=== PATIENT | male | born 1945 | race Caucasian/White ===

== ENCOUNTER 2016-11-20 06:50 | Day surgery (SDC) | payer MEDICARE, OTHER ==
[2016-11-16 09:41] VITALS: BMI 35.9
[~2016-11-20 06:50] MED LIST: LACTATED RINGERS 1,000 ML IV SCH
[2016-11-20 07:17] VITALS: TEMP 97
[2016-11-20 07:21] LABS: Glucose,Whole Blood 118 mg/dL (75-99)
[2016-11-20] MEDS ORDERED: PROPOFOL 10 MG/ML 20 ML VIAL IV ONE (08:25)
--- NOTE | 2016-11-20 09:06 | P.PCN ---
Date of Procedure: 11/20/16 Procedure(s) Performed: Procedure: 1. Esophagogastroduodenoscopy and biopsy. 2. Total colonoscopy. Preoperative diagnosis: Chronic reflux symptoms and rectal bleeding. Postoperative diagnosis: 1. Small sliding hiatal hernia with no definite esophagitis or complicated reflux disease. 2. Mild antral gastritis. 3. Diverticulosis of the colon with no evidence of acute diverticulitis or strictures. 4. Low-grade internal hemorrhoids without bleeding at the time of this exam. Preparation: HalfLytely prep. Sedation: Was provided by anesthesia. Brief clinical history: The patient is a 71-year-old male who I have evaluated in the office earlier this month regarding blood in his stools as well as chronic reflux symptoms. The patient had upper endoscopy and colonoscopy back in 2008. He reported having rectal bleeding for one week last month. There was some issues with occasional constipation or diarrhea but, otherwise, no significant bowel problems. No dysphagia or other alarm symptoms. Procedure: With the patient on his left lateral decubitus position and after informed consent and adequate sedation, I passed the Olympus-GIF 160 video upper endoscope through the cricopharyngeus down the esophagus. GE junction was around 40 cm from the incisors and there was a small sliding hiatal hernia. The GE is junction was irregular but I did not see any suggestion of Bains' s esophagus. There were no erosions, ulcers or strictures. The endoscope was then passed into the stomach which was insufflated with air and inspected in detail including the retroflex view in the cardia. There was some mottling and erythema in the antrum but no ulcers or erosions. Pyloric channel, duodenal bulb, post bulbar area and descending duodenum appeared within normal limits. I obtained multiple biopsies from the duodenum, antrum and esophagus then the endoscope was withdrawn and I proceeded with the colonoscopy. Perianal area did not show any fissures or fistulas. There were no masses felt on digital rectal examination. The Olympus CFQ 160L video colonoscope was then inserted in the rectum in the usual fashion and advanced to the cecum. There were multiple diverticular orifices seen scattered along the length of the bowel including the right side and around the hepatic flexure with no evidence of acute diverticulitis or strictures. No significant polyps or tumors were seen. The mucosa appeared healthy. There was no evidence of bleeding. I retroflexed endoscope in the rectum before the endoscope was withdrawn. Low- grade internal hemorrhoids were noted but there was no evidence of bleeding. The patient tolerated the procedure well. Plan: The patient was reassured. Will await biopsy results. Discussed dietary measures and local care for hemorrhoids. Further plans will be made based on his course. I will keep you updated on his progress.
[2016-11-20 09:24] LABS: Glucose,Whole Blood 124 mg/dL (75-99)
[2016-11-20 09:29] VITALS: BP 144/68; PULSE 59; RESP 20
== END 2016-11-20 09:59 | disposition home or self-care (01) ==
LOC: ORWHC2ENDO 06:50
DX: K29.70 Gastritis, unspecified, without bleeding (principal); K21.0 Gastro-esophageal reflux disease with esophagitis; K44.9 Diaphragmatic hernia without obstruction or gangrene; K57.30 Diverticulosis of large intestine without perforation or abscess without bleeding; K64.8 Other hemorrhoids; I10 Essential (primary) hypertension; J44.9 Chronic obstructive pulmonary disease, unspecified; G47.33 Obstructive sleep apnea (adult) (pediatric); Z99.89 Dependence on other enabling machines and devices; E11.9 Type 2 diabetes mellitus without complications; Z79.84 Long term (current) use of oral hypoglycemic drugs; N28.9 Disorder of kidney and ureter, unspecified; Z79.51 Long term (current) use of inhaled steroids; Z79.899 Other long term (current) drug therapy; Z88.0 Allergy status to penicillin; Z91.040 Latex allergy status
CPT/HCPCS: 88305; 88342; 45378; 43239; J2704; 99153

== ENCOUNTER 2016-12-07 14:19 | Inpatient (IN) | payer MEDICARE, OTHER ==
[2016-12-07] MEDS ORDERED: MORPHINE SULFATE 10 MG/ML SYRINGE IM STA (15:39)
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
--- NOTE | 2016-12-07 16:00 | XR ---
EXAMINATION TYPE: XR ribs LT w pa chest xray DATE OF EXAM: 12/07/2016 3:54 PM CLINICAL HISTORY: Chest and left lower rib pain. TECHNIQUE: Single frontal view of the chest is obtained. A frontal and oblique images of the left-katherine ed ribs are acquired. COMPARISON: Prior chest x-ray November 08, 2015. FINDINGS: There is persistent linear scarring and/or atelectasis in both lung bases. No large pleura l effusion or pneumothorax is seen bilaterally. The cardiac silhouette size is mildly enlarged with a therosclerotic thoracic aorta. The osseous structures are somewhat demineralized. Dedicated images of the left-sided ribs show no acute displaced fractures. There is old healed fractu re of the left anterolateral sixth rib redemonstrated. IMPRESSION: 1. Persistent bibasilar linear scarring and/or atelectasis. No new suspicious acute infiltrate is see n. 2. Old left anterolateral sixth rib fracture. No acute displaced left-sided rib fractures are clearly seen.
[2016-12-07 17:07] LABS: Magnesium 1.8 mg/dL (1.6-2.3); Potassium 4.8 mmol/L (3.5-5.1); Total Bilirubin 0.7 mg/dL (0.2-1.3); Total Protein 7.4 g/dL (6.3-8.2)
[2016-12-07 17:11] LABS: Basophils % (A) 0 %; CH 33.9; CHCM 34.6; Eosinophils # (A) 0.3 k/uL (0-0.7); Eosinophils % (A) 6 %; HCT 39.5 % (39.0-53.0); HDW 2.82; HGB 13.1 gm/dL (13.0-17.5); INR 1.1 (<1.1); Luc # (Auto) 0.07; Luc % (Auto) 1; Lymphocytes # (A) 0.8 k/uL (1.0-4.8); Lymphocytes % (A) 14 %; MCH 32.7 pg (25.0-35.0); MCHC 33.2 g/dL (31.0-37.0); MCV 98.5 fL (80.0-100.0); Mean Platelet Volume 8.2; Monocytes # (A) 0.2 k/uL (0-1.0); Monocytes % (A) 4 %; Neutrophils # (A) 4.1 k/uL (1.3-7.7); Neutrophils % (A) 74 %; Partial Thromboplastin Time 25.1 sec (22.0-30.0); Prothrombin Time 10.8 sec (9.0-12.0); RBC 4.01 m/uL (4.30-5.90); RDW 13.5 % (11.5-15.5); WBC 5.5 k/uL (3.8-10.6); WBC (Perox) 5.56
[2016-12-07 17:19] LABS: Creatine Kinase 36 U/L (55-170)
[2016-12-07 17:31] LABS: Creatine Kinase MB 0.7 ng/mL (0.0-2.4); Troponin I <0.012 ng/mL (0.000-0.034)
[2016-12-07] MEDS ORDERED: HYDROmorphone 1 MG/ML 1 ML SYRINGE IVP STA (18:09)
--- NOTE | 2016-12-07 19:21 | CT ---
EXAMINATION TYPE: CT chest wo con DATE OF EXAM: 12/07/2016 6:53 PM COMPARISON: NONE HISTORY: Pt states of left side chest pain. No known injury CT DLP: 847 mGycm. Automated Exposure Control for Dose Reduction was Utilized. TECHNIQUE: CT scan of the thorax is performed without IV contrast. FINDINGS: LUNGS: The lungs are grossly clear, there is no concerning parenchymal mass or nodule identified. Bi basilar subsegmental atelectasis is seen. There is no pleural effusion or pneumothorax seen. Nonobstr uctive circular 8mm lesion is seen within the distal aspect of the right mainstem bronchus that appea rs to contain internal air and may represent inspissated debris/mucus versus mass. MEDIASTINUM: Lack of IV contrast is noted to limit evaluation for mediastinal and especially hilar ad enopathy. Incidental note is made of a bovine aortic arch. There are no definitive greater than 1 cm hilar or mediastinal lymph nodes. No cardiomegaly or pericardial effusion is seen. OTHER: There is diffuse hypoattenuation of the entirety of the hepatic parenchyma compatible with und erlying hepatic steatosis. Multiple enlarged bilateral axillary lymph nodes maintain fatty nba, and are likely reactive. IMPRESSION: 1. No CT findings to support the patient's history of left-sided chest pain. 2. 8 mm nonobstructing lesion within the distal aspect of the right mainstem bronchus that appears to contain internal air and may represent inspissated debris/mucus versus mass. Follow-up short-term ex am or bronchoscopy are recommended for further evaluation. 3. Hepatic steatosis. 4. Multiple bilateral axillary lymph nodes that are enlarged but maintain fatty nba, likely reactive .
[2016-12-07] MEDS ORDERED: METHOCARBAMOL 750 MG TAB PO STA (19:56)
[2016-12-07] MEDS ORDERED: LIDOCAINE 5% PATCH TOPICAL STA (19:57)
[2016-12-07] MEDS ORDERED: NALOXONE 0.4 MG/ML 1 ML VIAL IV PRN (20:54)
[2016-12-07] MEDS ORDERED: ACETAMINOPHEN TAB 325 MG TAB PO PRN (20:54)
[2016-12-07 22:02] VITALS: BMI 36.1
[2016-12-07] MEDS: metFORMIN 500 MG TAB PO SCH (22:09)
[2016-12-07] MEDS: PROPRANOLOL LA 80 MG CAP.SA.24H PO SCH (22:09)
[2016-12-07] MEDS: ALLOPURINOL 100 MG TAB PO SCH (22:09)
[2016-12-07] MEDS: MORPHINE SULFATE 4 MG/ML SYRINGE IV PRN (22:11)
[2016-12-08] MEDS: MORPHINE SULFATE 4 MG/ML SYRINGE IV PRN ×2 (01:51→06:03)
[2016-12-08] MEDS: SYMBICORT 80-4.5 MCG INHALER INHALATION SCH ×3 (06:03→19:52)
[2016-12-08] MEDS ORDERED: PANTOPRAZOLE 40 MG TABLET PO SCH (07:30)
[2016-12-08 07:58] LABS: Glucose,Whole Blood 149 mg/dL (75-99)
[2016-12-08] MEDS: HYDROcodone/APAP 5-325MG 1 EACH TAB PO PRN ×2 (08:21→19:49)
[2016-12-08] MEDS: LINAGLIPTIN 5 MG TABLET PO SCH (08:25)
[2016-12-08] MEDS: metFORMIN 500 MG TAB PO SCH (08:25)
[2016-12-08] MEDS: PROPRANOLOL LA 80 MG CAP.SA.24H PO SCH ×2 (08:25→19:50)
[2016-12-08] MEDS: ALLOPURINOL 100 MG TAB PO SCH ×2 (08:25→19:50)
[2016-12-08] MEDS: FENOFIBRATE 160 MG TAB PO SCH (08:25)
[2016-12-08] MEDS: amLODIPine 5 MG TAB PO SCH (08:25)
[2016-12-08] MEDS: GABAPENTIN 300 MG CAP PO SCH (08:27)
[2016-12-08] MEDS ORDERED: FUROSEMIDE 40 MG TAB PO SCH (09:00)
[2016-12-08] MEDS ORDERED: GLIMEPIRIDE 1 MG TAB PO SCH (09:00)
[2016-12-08] MEDS ORDERED: LISINOPRIL 5 MG TAB PO SCH (09:00)
[2016-12-08 12:02] LABS: Glucose,Whole Blood 138 mg/dL (75-99)
[2016-12-08] MEDS: SODIUM CHLORIDE 0.9% 1,000 ML IV SCH ×2 (15:09→17:21)
[2016-12-08] MEDS: IPRATROPIUM-ALBUTEROL 3 ML NEB INHALATION SCH ×2 (16:08→19:52)
[2016-12-08 16:11] LABS: Hemoglobin A1C 6.4 % (4.2-6.1)
[2016-12-08 17:06] LABS: Glucose,Whole Blood 148 mg/dL (75-99)
[2016-12-08] MEDS: INSULIN LISPRO (humaLOG) 300 UNIT/3 ML VIAL SQ SCH ×2 (17:53→19:58)
[2016-12-08 17:57] LABS: Amylase 59 U/L (30-110)
--- NOTE | 2016-12-08 19:34 | CT ---
EXAMINATION TYPE: CT abdomen pelvis wo con DATE OF EXAM: 12/08/2016 6:51 PM COMPARISON: 10/22/2014 HISTORY: Left sided rib and abdominal pain. CT DLP: 1130.30 mGycm Automated exposure control for dose reduction was used. TECHNIQUE: Helical acquisition of images was performed from the lung bases through the pelvis. FINDINGS: There is some atelectasis at both posterior lung bases. There is no pleural effusion. Liver shows no focal defect. Gallbladder appears normal. Bile ducts are not dilated. Spleen appears n ormal. There is no pancreatic mass. There is no ascites. There is no adrenal mass. There is a 1 cm cortical cyst on the anterior right kidney. There is no hyd ronephrosis. There is no retroperitoneal adenopathy. I see no intestinal wall thickening. There are n o dilated loops. Appendix appears normal. There is no sign of appendicitis. Bony structures are intac t. IMPRESSION: THERE IS NEW ATELECTASIS AT THE POSTERIOR LUNG BASES COMPARED TO OLD EXAM. NORMAL APPENDIX. STABLE RI GHT SMALL RENAL CORTICAL CYST. THERE IS CLEARING OF THE MINIMAL LEFT-SIDED HYDRONEPHROSIS COMPARED TO OLD EXAM.
[2016-12-08] MEDS: FAMOTIDINE 20 MG TAB PO SCH (19:50)
--- NOTE | 2016-12-08 19:50 | HP ---
DATE OF ADMISSION: 12/07/2016 This patient is a 71-year-old who came in with complaints of left-sided abdominal pain ( ) nonspecific sharp in nature, non-radiating, that started after sneezing apparently, and patient believes he pulled his muscle, and he complains that he has severe pain, although on exam patient does not have any hernias. I am not sure of the etiology of abdominal pain after sneezing, because of which I am obtaining a CT of the abdomen without contrast, as his kidney function is worse. Patient is admitted to rule out acute coronary artery syndromes, although patient denied any chest pain, and one set of troponins was negative. Patient denied any nausea, vomiting. His pain gets worse on and off. It appears to be like a squeezing and a sharp pain. I will also obtain amylase and lipase levels on him. The main reason I am keeping him here is because of his poor renal function. Patient's baseline creatinine is 1.2. Patient's creatinine now is around 2. Patient is on Lasix. He does not exactly know why he is on Lasix. Patient is on other nephrotoxic agents. Those will be discontinued and we will watch the patient here. Patient will be started on IV fluids and repeat kidney function tomorrow. REVIEW OF SYSTEMS: CONSTITUTIONAL: No fever, no malaise, no fatigue. HEENT: No recent visual problems or hearing problems. Denied any sore throat. CARDIOVASCULAR: No chest pain, orthopnea, PND, no palpitations, no syncope. PULMONARY: No shortness of breath, no cough, no hemoptysis. GASTROINTESTINAL: As described in HPI. Patient denied any diarrhea, hematochezia. NEUROLOGICAL: No headaches, no weakness, no numbness. HEMATOLOGICAL: Denies any bleeding or petechiae. GENITOURINARY: Denies any burning micturition, frequency, or urgency. MUSCULOSKELETAL/RHEUMATOLOGICAL: Denies any joint pain, swelling, or any muscle pain. ENDOCRINE: Denies any polyuria or polydipsia. The rest of the 14 point review of systems is negative. Home medications include: 1. Allopurinol. 2. Budesonide /formoterol. 3. Enalapril. 4. Lasix. 5. Glimepiride. 6. Linagliptin. 7. Meclizine. 8. Pantoprazole. 9. Propranolol. 10. Amlodipine. 11. Metformin. 12. Fenofibrate. 13. Gabapentin. 14. Ergocalciferol. ALLERGIES: 1. INFLUENZA VIRUS. 2. LATEX. 3. PENICILLINS. Past medical history is significant for: 1. COPD. 2. Diabetes mellitus, type 2. 3. Gastroesophageal reflux disease. 4. Hyperlipidemia. 5. Hypertension. 6. Osteoarthritis. 7. Prostate disorder. 8. Sleep apnea. 9. Adenoidectomy. 10. Ear surgery. 11. Hernia repair. 12. Orthopedic surgery. 13. Prostate surgery. She never had any CHF history in the past. SOCIAL HISTORY: Former smoker. Quit smoking in . Denied any alcohol abuse or any drug abuse. FAMILY HISTORY: Denied any significant family history in mother or father. PHYSICAL EXAMINATION: VITAL SIGNS: Temperature 98.3, pulse of 68, respiratory rate of 16. Blood pressure is 139/65. Saturating at 94% on 2 L of oxygen by nasal cannula. GENERAL: Morbidly obese. Alert and oriented x3. HEENT: Pupils are round and equally reacting to light. EOMI. No scleral icterus. No conjunctival pallor. Normocephalic, atraumatic. No pharyngeal erythema. No thyromegaly. CARDIOVASCULAR: S1 and S2 present. No murmurs, rubs, or gallops. PULMONARY: Minimal expiratory wheezing was appreciated on exam. ABDOMEN: Distended with fat mostly. MUSCULOSKELETAL: No joint swelling or deformity. EXTREMITIES: No cyanosis, clubbing, or pedal edema. NEUROLOGICAL: Gross neurological examination did not reveal any focal deficits. SKIN: No rashes. LABORATORY DATA: CBC, CMP are abnormal for elevated BUN of 36, creatinine of 2.03. ASSESSMENT AND PLAN: 1. Acute renal failure, probably prerenal azotemia from excessive diuresis. Patient will be started on IV fluids. Diuretics will be held at this point of time. Lisinopril will be held. Along with that, we will also hold MAIN inhibitor and Glimepiride. Patient will be started on sliding scale insulin for blood sugars. 2. Left-sided abdominal pain. Patient has nonspecific abdominal pain; unsure of the etiology. I will obtain a CT of the abdomen without contrast, as mentioned above. Patient does not have any chest pain at this point of time. No hernias. 3. Morbid obesity. Dietary counseling was provided. 4. Benign prostatic hypertrophy. 5. Hyperlipidemia. 6. Hypertension. 7. Diabetes mellitus, type 2. 8. Chronic obstructive pulmonary disease with minimal exacerbation. I do not believe patient will need systemic steroids. Inhalational treatments and Symbicort will be continued. Patient has a negative D-dimer. For above-mentioned chronic medical problems, I will continue his home medications with some modifications, as I mentioned in the HPI. Protonix will be held. Patient will be started on Pepcid because of poor renal function. Patient's primary care physician is Dr. Monisha Parham.
[2016-12-08 19:55] LABS: Glucose,Whole Blood 141 mg/dL (75-99)
[2016-12-08] MEDS ORDERED: BENZOCAINE/MENTHOL LOZENG 1 EACH LOZENGE MUCOUS MEM PRN (21:28)
[2016-12-09] MEDS: HYDROcodone/APAP 5-325MG 1 EACH TAB PO PRN ×3 (04:17→18:20)
[2016-12-09 05:42] LABS: CH 34.1; CHCM 33.9; HCT 33.7 % (39.0-53.0); HDW 2.69; HGB 11.3 gm/dL (13.0-17.5); MCH 33.8 pg (25.0-35.0); MCHC 33.4 g/dL (31.0-37.0); Macrocytosis Slight; Mean Platelet Volume 9.2; RBC 3.34 m/uL (4.30-5.90); RDW 13.5 % (11.5-15.5); WBC 5.8 k/uL (3.8-10.6)
[2016-12-09 05:56] LABS: Calcium 8.9 mg/dL (8.4-10.2); Potassium 5.2 mmol/L (3.5-5.1)
[2016-12-09 06:51] LABS: Glucose,Whole Blood 121 mg/dL (75-99)
[2016-12-09] MEDS: IPRATROPIUM-ALBUTEROL 3 ML NEB INHALATION SCH ×4 (07:53→19:47)
[2016-12-09] MEDS: SYMBICORT 80-4.5 MCG INHALER INHALATION SCH ×2 (07:55→19:47)
[2016-12-09] MEDS: INSULIN LISPRO (humaLOG) 300 UNIT/3 ML VIAL SQ SCH ×3 (08:05→17:28)
[2016-12-09] MEDS: GABAPENTIN 300 MG CAP PO SCH (08:14)
[2016-12-09] MEDS: ALLOPURINOL 100 MG TAB PO SCH ×2 (08:14→21:55)
[2016-12-09] MEDS: FAMOTIDINE 20 MG TAB PO SCH (08:14)
[2016-12-09] MEDS: PROPRANOLOL LA 80 MG CAP.SA.24H PO SCH ×2 (08:14→21:55)
[2016-12-09] MEDS: FENOFIBRATE 160 MG TAB PO SCH (08:14)
[2016-12-09] MEDS: amLODIPine 5 MG TAB PO SCH (08:14)
[2016-12-09] MEDS: LINAGLIPTIN 5 MG TABLET PO SCH (08:14)
[2016-12-09] MEDS: SODIUM CHLORIDE 0.9% 1,000 ML IV SCH ×3 (10:41→16:07)
[2016-12-09 11:53] LABS: Glucose,Whole Blood 204 mg/dL (75-99)
--- NOTE | 2016-12-09 15:09 | XR ---
EXAMINATION TYPE: XR chest 1V DATE OF EXAM: 12/09/2016 3:01 PM COMPARISON: Prior chest x-ray 07 December 2016, CT chest 07 December 2016 HISTORY: Congestive heart failure TECHNIQUE: Single frontal view of the chest is obtained. FINDINGS: There is some improvement in aeration at the lung bases. Patient is again rotated. No evid ent pneumothorax. IMPRESSION: Improvement in aeration.
[2016-12-09] MEDS ORDERED: FUROSEMIDE 10 MG/ML 4 ML VIAL IV STA (15:36)
[2016-12-09 16:47] LABS: ABG HCO3 22 mmol/L (21-25); ABG PCO2 35 mmHg (35-45); ABG PO2 60 mmHg (83-108)
[2016-12-09 16:48] LABS: ABG Base Excess -2.4 mmol/L; ABG TCO2 23 mmol/L (19-24)
[2016-12-09 17:40] LABS: Glucose,Whole Blood 112 mg/dL (75-99)
--- NOTE | 2016-12-09 18:09 | PN ---
Patient is a 71-year-old came in with left-sided abdominal pain. CT of the abdomen is negative. The abdominal pain resolved, probably musculoskeletal in nature and patient is actually here because of kidney dysfunction, although his kidney dysfunction has worsened. CT of the abdomen did show some left-sided mild hydronephrosis, which is actually improving. I am obtaining ultrasound of the kidney and obtaining urine, random sodium and urine random creatinine. Patient does have chronic kidney disease. Give a dose of Lasix and stop the IV fluids. Patient does carry the diagnosis of congestive heart failure, although not clearly evident on chest x-ray. Holding off all the nephrotoxic medications at this point of time. Patient's oxygen requirements have gone up to 4 liters. The patient was not wearing oxygen, although may have some sleep apnea, which is undiagnosed. I will obtain an echocardiogram as well. REVIEW OF SYSTEMS: CARDIOVASCULAR: No chest pain, no orthopnea, no PND, no palpitations. PULMONARY: Denied any shortness of breath. No cough or hemoptysis. GASTROINTESTINAL: No diarrhea, nausea or vomiting. No abdominal pain. Normoactive bowel sounds. NEUROLOGIC: No headaches, no weakness, no numbness. Medications were reviewed. PHYSICAL EXAMINATION: VITAL SIGNS: Temperature 97.7, pulse of 84, respiratory rate of 20, blood pressure is 106/58, saturating at 93% on 4-L of O2 nasal cannula. GENERAL: Alert and oriented x3, morbidly obese. HEENT: Pupils are round and equally reacting to light. EOMI. No scleral icterus. No conjunctival pallor. Normocephalic, atraumatic. No pharyngeal erythema. No thyromegaly. CARDIOVASCULAR: S1 and S2 present. No murmurs, rubs, or gallops. PULMONARY: Chest is clear to auscultation, no wheezing or crackles. ABDOMEN: Soft, nontender, nondistended, normoactive bowel sounds. No palpable organomegaly. MUSCULOSKELETAL: No joint swelling or deformity. EXTREMITIES: Patient does have 1+ nonpitting pedal edema in bilateral lower extremities. NEUROLOGICAL: Gross neurological examination did not reveal any focal deficits. SKIN: No rashes. LABORATORY DATA: CBC and CMP are abnormal for elevated potassium of 5.2. BUN is 64, creatinine of 4.31. BUN yesterday was 36 and creatinine was 2.03. ASSESSMENT AND PLAN: 1. Significant acute renal failure initially thought to be secondary to prerenal azotemia and intravascular volume depletion. Can be from congestive heart failure too. Will give a dose of Lasix and see how he does. I will stop the IV fluids. Avoid all the nephrotoxic agents. Consult Nephrology. Patient will be transferred to regular floor. 2. Morbid obesity. 3. benign prostatic hypertrophy. 4. Hyperlipidemia. 5. Hypertension. 6. Type 2 diabetes mellitus. 7. Acute hypoxic respiratory failure, may be related to congestive heart failure. Obtain echocardiogram, can be from pulmonary hypertension too. 8. Obstructive sleep apnea with minimal exacerbation for which we are using inhalational treatments and Symbicort, although his wheezing improved today. 9. Hyperkalemia due to worsening renal function.
[2016-12-09] MEDS: LORazepam 2 MG/ML SYRINGE IV PRN (20:20)
[2016-12-09 20:46] LABS: Glucose,Whole Blood 235 mg/dL (75-99)
--- NOTE | 2016-12-09 21:36 | US ---
EXAMINATION TYPE: US kidneys/renal and bladder DATE OF EXAM: 12/09/2016 5:44 PM COMPARISON: 05/29/2014 CLINICAL HISTORY: renal failure. no symptoms per patient, EXAM MEASUREMENTS: Right Kidney: 11.2 x 5.1 x 5.5 cm Left Kidney: 9.1 x 4.1 x 5.5 cm TECHNOLOGIST IMPRESSION: large body habitus Right Kidney: 1.9cm hyperechoic lesion seen on superior pole, noted on previous US also Left Kidney: wnl Bladder: wnl Bilateral Jets seen: no Echogenic focus of the upper pole of the right kidney compatible with angiomyolipoma again noted. No hydronephrosis bilaterally. Coarse echotexture noted within the liver. IMPRESSION: Ureteral jets are not evident. 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 Probable fatty infiltrat ion of the liver.
[2016-12-09 21:59] LABS: Glucose,Whole Blood 177 mg/dL (75-99)
[2016-12-10 00:21] LABS: Glucose,Whole Blood 144 mg/dL (75-99)
[2016-12-10] MEDS: SODIUM CHLORIDE 0.9% 1,000 ML IV SCH ×3 (00:33→10:53)
[2016-12-10] MEDS: INSULIN LISPRO (humaLOG) 300 UNIT/3 ML VIAL SQ SCH ×5 (00:34→22:24)
[2016-12-10 07:13] LABS: Glucose,Whole Blood 153 mg/dL (75-99)
[2016-12-10] MEDS: PROPRANOLOL LA 80 MG CAP.SA.24H PO SCH ×2 (08:19→22:38)
[2016-12-10] MEDS: LINAGLIPTIN 5 MG TABLET PO SCH (08:20)
[2016-12-10] MEDS: FAMOTIDINE 20 MG TAB PO SCH (08:20)
[2016-12-10] MEDS: GABAPENTIN 300 MG CAP PO SCH (08:20)
[2016-12-10] MEDS: ALLOPURINOL 100 MG TAB PO SCH ×2 (08:20→22:24)
[2016-12-10] MEDS: FENOFIBRATE 160 MG TAB PO SCH (08:21)
[2016-12-10] MEDS: HYDROcodone/APAP 5-325MG 1 EACH TAB PO PRN (08:25)
[2016-12-10] MEDS: SYMBICORT 80-4.5 MCG INHALER INHALATION SCH ×2 (09:05→20:26)
[2016-12-10] MEDS: IPRATROPIUM-ALBUTEROL 3 ML NEB INHALATION SCH ×4 (09:05→20:25)
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
[2016-12-10 09:58] LABS: CH 33.3; CHCM 33.3; HCT 33.4 % (39.0-53.0); HDW 2.57; HGB 11.1 gm/dL (13.0-17.5); MCH 33.5 pg (25.0-35.0); MCHC 33.3 g/dL (31.0-37.0); MCV 100.5 fL (80.0-100.0); Mean Platelet Volume 7.7; RBC 3.32 m/uL (4.30-5.90); RDW 13.4 % (11.5-15.5); WBC 5.2 k/uL (3.8-10.6)
[2016-12-10 10:09] LABS: Potassium 4.6 mmol/L (3.5-5.1); Total Protein 6.2 g/dL (6.3-8.2)
[2016-12-10 10:33] LABS: Appearance,Urine Clear (Clear); Bacteria,Urine Rare /hpf; Bilirubin,Urine Negative (Negative); Glucose,Urine (UA) Negative (Negative); Ketones,Urine Negative (Negative); Leukocyte Esterase,Urine Negative (Negative); Nitrite,Urine Negative (Negative); Particle Count 1087; Protein,Urine 1+ (Negative); RBC,Urine <1 /hpf (0-5); Specific Gravity,Urine 1.014 (1.001-1.035); Squamous Epithelial Cell,Urine <1 /hpf (0-4); UA Billing (MACRO vs. MICRO) MICRO
[2016-12-10 11:42] LABS: Glucose,Whole Blood 138 mg/dL (75-99)
[2016-12-10 17:16] LABS: Glucose,Whole Blood 153 mg/dL (75-99)
--- NOTE | 2016-12-10 17:51 | XR ---
EXAMINATION TYPE: XR chest 1V portable DATE OF EXAM: 12/10/2016 5:32 PM CLINICAL HISTORY: Difficulty breathing progress study. Rule out infection. TECHNIQUE: Single AP portable upright view of the chest is obtained. COMPARISON: Chest x-ray from one day earlier FINDINGS: Diminished inspiration on current study is present. Heart size is enlarged. No suspicious new focal airspace opacity, pleural effusion, or pneumothorax is seen on current study. There is pers istent patchy left basilar atelectasis. Degenerative change left glenohumeral joint is noted. IMPRESSION: Diminished inspiration with redemonstration of cardiomegaly but no new suspicious focal i nfiltrate clearly seen.
--- NOTE | 2016-12-10 17:53 | CT ---
EXAMINATION TYPE: CT brain wo con DATE OF EXAM: 12/10/2016 5:28 PM HISTORY: Confusion CT DLP: 1017.8 mGycm. Automated Exposure Control for Dose Reduction was Utilized. TECHNIQUE: CT scan of the head is performed without contrast. COMPARISON: CT brain March 30, 2010. FINDINGS: There is no acute intracranial hemorrhage or midline shift identified. There is diffuse v entricular and sulcal prominence consistent with diffuse age-related cerebral atrophy. There is low- attenuation in the periventricular white matter consistent with chronic small vessel ischemic change. Left basal ganglia calcification is redemonstrated. The globes are intact and the visualized sinuse s are clear. IMPRESSION: No acute intracranial hemorrhage or midline shift. There is mild diffuse age-related ce rebral atrophy and chronic small vessel ischemic change redemonstrated without significant interval c hange If Clinical concern for acute stroke persists further investigation with MRI study may be warranted.
[2016-12-10] MEDS: LORazepam 2 MG/ML SYRINGE IV PRN (19:13)
[2016-12-10] MEDS ORDERED: PIPERACILLIN-TAZOBACTAM 3.375 GM VIAL IVPB SCH (21:00)
[2016-12-10] MEDS ORDERED: PIPERACILLIN-TAZOBACTAM 3.375 GM in DEXTROSE/WATER 1 50ML.BAG IVPB SCH (21:00)
[2016-12-10 21:20] LABS: Glucose,Whole Blood 154 mg/dL (75-99)
[2016-12-10] MEDS: QUEtiapine 25 MG TAB PO PRN (22:38)
[2016-12-11] MEDS ORDERED: LORazepam 2 MG/ML SYRINGE IV PRN (00:14)
[2016-12-11 07:26] LABS: Glucose,Whole Blood 128 mg/dL (75-99)
[2016-12-11] MEDS: INSULIN LISPRO (humaLOG) 300 UNIT/3 ML VIAL SQ SCH ×4 (08:32→20:15)
[2016-12-11] MEDS: ALLOPURINOL 100 MG TAB PO SCH ×2 (08:32→20:16)
[2016-12-11] MEDS: PROPRANOLOL LA 80 MG CAP.SA.24H PO SCH ×2 (08:32→20:13)
[2016-12-11] MEDS: GABAPENTIN 300 MG CAP PO SCH (08:33)
[2016-12-11] MEDS: LINAGLIPTIN 5 MG TABLET PO SCH (08:33)
[2016-12-11] MEDS: FAMOTIDINE 20 MG TAB PO SCH (08:33)
[2016-12-11] MEDS: FENOFIBRATE 160 MG TAB PO SCH (08:33)
[2016-12-11] MEDS: SODIUM CHLORIDE 0.9% 1,000 ML IV SCH (08:44)
[2016-12-11] MEDS: SYMBICORT 80-4.5 MCG INHALER INHALATION SCH ×2 (09:20→20:24)
[2016-12-11] MEDS: IPRATROPIUM-ALBUTEROL 3 ML NEB INHALATION SCH ×4 (09:21→20:24)
--- NOTE | 2016-12-11 10:29 | P.PN ---
Subjective Patient is seen in follow-up for acute kidney injury. Patient has chronic kidney disease stage III with baseline creatinine near 1.4 as of March 2016. His creatinine this admission was 2 and increased to 4.3 as of yesterday. He was noted to have urinary retention and a Mckeon catheter was inserted. He is nonoliguric with urine output greater than 2 L in the last 24 hours. His appetite is good. Denies any vomiting or diarrhea. Denies active chest pain or shortness of breath. He did spike a temperature this admission however cultures remain negative. Urinalysis and renal ultrasound are noted to be quite benign. Vital signs are stable. General: The patient appeared well nourished and normally developed. HEENT: Head exam is unremarkable. Neck is without jugular venous distension. LUNGS: Lungs are clear to auscultation and percussion. Breath sounds decreased. HEART: Rate and Rhythm are regular. First and second heart sounds normal. No murmurs, rubs or gallops. ABDOMEN: Abdominal exam reveals normal bowel sounds. Non-tender and non- distended. No evidence of peritonitis. EXTREMITITES: No clubbing, cyanosis, or edema. Objective - Vital Signs Vital signs: Vital Signs Temp 97.7 F 12/11/16 07:00 Pulse 66 12/11/16 07:00 Resp 20 12/11/16 07:00 BP 109/59 12/11/16 07:00 Pulse Ox 94 L 12/11/16 07:00 Intake & Output 12/10/16 12/11/16 12/11/16 18:59 06:59 18:59 Intake Total 200 Output Total 800 1300 Balance -600 -1300 Intake: Oral 200 Output: Urine 800 1300 Other: # Bowel Movements 0 - Labs CBC & Chem 7: 12/10/16 09:20 12/10/16 09:20 Labs: Abnormal Lab Results - Last 24 Hours (Table) 12/10/16 12/10/16 12/10/16 Range/Units 10:00 11:21 16:56 POC Glucose (mg/dL) 138 H 153 H (75-99) mg/dL Urine Protein 1+ H (Negative) Urine Bacteria Rare H (None) /hpf 12/10/16 12/11/16 Range/Units 21:08 07:22 POC Glucose (mg/dL) 154 H 128 H (75-99) mg/dL Urine Protein (Negative) Urine Bacteria (None) /hpf Microbiology - Last 24 Hours (Table) 12/09/16 22:00 Blood Culture - Preliminary Blood No Growth after 24 hours 12/09/16 22:20 Blood Culture - Preliminary Blood No Growth after 24 hours 12/10/16 10:00 Urine Culture - Preliminary Urine,Voided Assessment and Plan Plan: Assessment: #1. Nonoliguric acute kidney injury secondary to ischemic ATN secondary to hemodynamic instability and urinary retention. Creatinine 4.3 as of yesterday. #2. Chronic kidney disease stage III with baseline creatinine near 1.4 as of March 2016. Etiology is diabetic kidney disease. No evidence of hydronephrosis noted on renal ultrasound. No hematuria. #3. Type 2 diabetes mellitus. #4. History of BPH. Plan: Continue normal saline to run at 50 mL an hour. Follow-up cultures. Avoid nephrotoxic agents and hypotensive episodes. Maintain Mckeon catheter. Start Flomax. Repeat electrolytes in the morning.
[2016-12-11 10:43] LABS: Calcium 8.9 mg/dL (8.4-10.2); Potassium 4.9 mmol/L (3.5-5.1)
--- NOTE | 2016-12-11 11:30 | PN ---
71-year-old is being treated for acute renal failure, probably secondary to acute tubular necrosis and the patient got confused last night secondary to toxic metabolic encephalopathy from uremia. I will obtain a CT of the head to rule out any intracranial issues. For agitation, we will use antipsychotics, ( ). Nephrology evaluated the patient and the patient has a low-grade fever last night. We will do the septic workup. Blood cultures, chest x-ray and UA was obtained which did not show any significant abnormality. REVIEW OF SYSTEMS: CARDIOVASCULAR: No chest pain, no orthopnea, no PND, no palpitations. PULMONARY: Denied any shortness of breath. No cough or hemoptysis. GASTROINTESTINAL: No diarrhea, nausea or vomiting. No abdominal pain. Normoactive bowel sounds. NEUROLOGIC: No headaches, no weakness, no numbness. Medications were reviewed. PHYSICAL EXAMINATION: VITAL SIGNS: Temperature 97.3, pulse of 84, respiratory rate of 20, blood pressure is 101/56, saturating at 92% on 5 liters of O2 by nasal cannula and I am repeating a chest x-ray. We will also obtain an ABG. GENERAL: The patient appears to be a bit lethargic, drowsy, but oriented x3, morbidly obese. HEENT: Pupils are round and equally reacting to light. EOMI. No scleral icterus. No conjunctival pallor. Normocephalic, atraumatic. No pharyngeal erythema. No thyromegaly. CARDIOVASCULAR: S1 and S2 present. No murmurs, rubs, or gallops. PULMONARY: Chest is clear to auscultation, no wheezing or crackles. ABDOMEN: Soft, nontender, nondistended, normoactive bowel sounds. No palpable organomegaly. MUSCULOSKELETAL: No joint swelling or deformity. EXTREMITIES: No cyanosis, clubbing, or pedal edema. NEUROLOGICAL: Gross neurological examination did not reveal any focal deficits. SKIN: No rashes. LABORATORY DATA: BUN continued to worsen, to 69 and 4.34. Patient does not have any leukocytosis and had a low-grade fever. ASSESSMENT AND PLAN: 1. Acute renal failure due to acute tubular necrosis. Continue to hold nephrotoxic agents. Continue with IV fluids at 50 mL/h as ordered by nephrology. 2. Morbid obesity. 3. Benign prostatic hypertrophy. 4. Hyperlipidemia. 5. Hypertension. 6. Type 2 diabetes mellitus. 7. Low grade fevers, rule out sepsis with above mentioned management. 8. Obstructive sleep apnea with minimal exacerbation. Continue with inhalational treatments and Symbicort. May need prednisone many prednisone. 9. Continue with empiric antibiotics for now. 10. We will obtain ABG to assess for his hypoxemia. Patient is requiring 5 liters at this point of time. 11. Acute respiratory failure not sure whether it is hypoxic or hypercapnic. We will obtain an ABG as mentioned above.
[2016-12-11] MEDS: TAMSULOSIN 0.4 MG CAP.ER.24H PO SCH (11:48)
--- NOTE | 2016-12-11 11:49 | ECHOF ---
Referral Reason:shortness of breath MEASUREMENTS -------- HEIGHT: 167.6 cm WEIGHT: 96.6 kg BP: 109/59 RVIDd: 3.1 cm (< 3.3) IVSd: 1.3 cm (0.6 - 1.1) LVIDd: 3.3 cm (3.9 - 5.3) LVPWd: 1.3 cm (0.6 - 1.1) IVSs: 2.0 cm LVIDs: 2.3 cm LVPWs: 2.0 cm LA Diam: 3.6 cm (2.7 - 3.8) LAESV Index (A-L): 20.14 ml/m Ao Diam: 3.3 cm (2.0 - 3.7) AV Cusp: 1.9 cm (1.5 - 2.6) LA Diam: 3.2 cm (2.7 - 3.8) MV EXCURSION: 15.249 mm (> 18.000) MV EF SLOPE: 67 mm/s (70 - 150) EPSS: 0.5 cm MV E Luiz: 0.95 m/s MV DecT: 186 ms MV A Luiz: 0.87 m/s MV E/A Ratio: 1.10 AV maxP.07 mmHg AV meanP.33 mmHg RAP: 5.00 mmHg RVSP: 36.03 mmHg FINDINGS -------- Sinus rhythm. This was a technically difficult study with suboptimal views. There is mild concentric left ventricular hypertrophy. Overall left ventricular systolic function is normal with, an EF between 55 - 60 %. The right ventricle is normal in size. Normal LA size by volume 22+/-6 ml/m2. The right atrium is normal in size. 1.5mg of Definity was utilized for enhancement of images Aortic valve is trileaflet and is mildly thickened. Peak/mean gradient across the Aortic Valve is 14.07mmHg / 7.33mmHg. Mild mitral annular calcification present. Mild tricuspid regurgitation present. There is mild pulmonary hypertension. The right ventricular systolic pressure, as measured by Doppler, is 36.03mmHg. The pulmonic valve was not well visualized. The aortic root size is normal. IVC Not well visulized. Echo free space may represent effusion or a pericardial fat pad. CONCLUSIONS -------- 1. Sinus rhythm. 2. Peak/mean gradient across the Aortic Valve is 14.07mmHg / 7.33mmHg. 3. Mild mitral annular calcification present. 4. Mild tricuspid regurgitation present. 5. There is mild pulmonary hypertension. 6. The right ventricular systolic pressure, as measured by Doppler, is 36.03mmHg. 7. The pulmonic valve was not well visualized. 8. The aortic root size is normal. 9. IVC Not well visulized. 10. Echo free space may represent effusion or a pericardial fat pad. 11. This was a technically difficult study with suboptimal views. 12. There is mild concentric left ventricular hypertrophy. 13. Overall left ventricular systolic function is normal with, an EF between 55 - 60 %. 14. The right ventricle is normal in size. 15. Normal LA size by volume 22+/-6 ml/m2. 16. The right atrium is normal in size. 17. 1.5mg of Definity was utilized for enhancement of images 18. Aortic valve is trileaflet and is mildly thickened. SUPERVISOR TYPE PHOTOGRAPHY: Jacques Abdullahi RDCS
[2016-12-11 11:54] LABS: Glucose,Whole Blood 189 mg/dL (75-99)
[2016-12-11 17:13] LABS: Glucose,Whole Blood 119 mg/dL (75-99)
[2016-12-11] MEDS: QUEtiapine 25 MG TAB PO PRN (20:16)
[2016-12-11 20:29] LABS: Glucose,Whole Blood 249 mg/dL (75-99)
[2016-12-12] MEDS: SODIUM CHLORIDE 0.9% 1,000 ML IV SCH (04:36)
[2016-12-12 07:26] LABS: Glucose,Whole Blood 138 mg/dL (75-99)
[2016-12-12] MEDS: SYMBICORT 80-4.5 MCG INHALER INHALATION SCH ×2 (07:44→19:37)
[2016-12-12] MEDS: IPRATROPIUM-ALBUTEROL 3 ML NEB INHALATION SCH ×4 (07:44→19:37)
[2016-12-12] MEDS: INSULIN LISPRO (humaLOG) 300 UNIT/3 ML VIAL SQ SCH ×4 (08:03→20:59)
[2016-12-12] MEDS: TAMSULOSIN 0.4 MG CAP.ER.24H PO SCH (08:05)
[2016-12-12] MEDS: FAMOTIDINE 20 MG TAB PO SCH (08:05)
[2016-12-12] MEDS: LINAGLIPTIN 5 MG TABLET PO SCH (08:05)
[2016-12-12] MEDS: FENOFIBRATE 160 MG TAB PO SCH (08:05)
[2016-12-12] MEDS: PROPRANOLOL LA 80 MG CAP.SA.24H PO SCH ×2 (08:05→20:59)
[2016-12-12] MEDS: ALLOPURINOL 100 MG TAB PO SCH ×2 (08:05→20:59)
[2016-12-12] MEDS: GABAPENTIN 300 MG CAP PO SCH (08:05)
--- NOTE | 2016-12-12 08:13 | CONS ---
DATE OF CONSULTATION: DATE OF SERVICE: 12/11/2016 REASON FOR CONSULTATION: Fever and antibiotic recommendation. HISTORY OF PRESENT ILLNESS: The patient is a 71-year-old male who presented to [facility] ER on 12/07/2016 with chief complaints of left-sided pain. The pain has been mostly in the left lower rib cage area. The patient gets some associated shortness of breath with it. The patient denies any significant cough or any sputum production. Patient denies having any nausea or any vomiting or any URI symptom. The patient did not have any fever on arrival to the ER. He has been evaluated by the ER physician. The patient did have x-rays which showed persistent bibasilar linear scarring or atelectasis. No new suspicious acute infiltrate is seen. Old left anterolateral sixth rib fracture. He did have a CT of the chest without contrast which shows an 8 mm nonobstructing lesion within the distal aspect of the right mainstem bronchus that appears to be contain internal air and may represent inspissated debris/ mucus versus mass. The patient also had a CT of abdomen and pelvis, which did show some atelectatic changes at the posterior lung base compared to the old exam. Normal appendix. Subsequently, the patient did spike a low-grade fever. The patient was started on Zosyn. Because of PENICILLIN allergy I was asked to see the patient for further recommendation regarding antibiotic therapy though the patient apparently did okay with Zosyn infusion. Patient at the time of my evaluation overall left sided chest pain has improved. His breathing is better. The patient had very mild cough, not bringing up any sputum. Patient denies any nausea, vomiting. No abdominal pain and no diarrhea. REVIEW OF SYSTEMS: CONSTITUTIONAL: Positive for weakness and low-grade fever. EYES: No complaint. ENT: No complaint. RESPIRATORY: As per HPI. CARDIOVASCULAR: No complaint. GENITOURINARY: No complaint. GASTROINTESTINAL: No complaint. MUSCULOSKELETAL: No complaint. INTEGUMENTARY: No complaint. PSYCHOLOGICAL: No complaint. ENDOCRINE: No complaint. NEUROLOGIC: No complaint. PAST MEDICAL HISTORY: Diabetes mellitus, COPD, gastroesophageal reflux disease, history of GI bleed, hypertension, hyperlipidemia, osteoarthritis, benign prostatic hypertrophy, renal insufficiency, sleep apnea. PAST SURGICAL HISTORY: Adenoidectomy, hernia repair, prostate surgery, tonsillectomy. ORIF of the right leg. SOCIAL HISTORY: The patient quit smoking back in 1969. She had about ( ) pack year smoking. Chews tobacco. No drug use. FAMILY HISTORY: No pertinent findings were noticed. Allergies to PENICILLIN with a rash, LATEX. However, he tolerated Zosyn without any problem. Medications currently include the patient is on Tylenol, [place], DuoNeb, Zyloprim, Cepacol lozenges, Symbicort, Rocephin, Pepcid, fenofibrate, Neurontin, Humalog, Ativan, morphine sulfate, Narcan, Inderal, Seroquel, Flomax. On examination, blood pressure is 109/59 with the pulse is 66, temperature is 97.7. He is 94% on 4 L nasal cannula. General description is an elderly male, lying in bed in no distress. No tachypnea or accessory muscle of respiration use. HEENT EXAMINATION: Slight pallor. No scleral icterus. Oral mucosal membranes dry. NECK: Trachea is central with no thyromegaly. LUNGS: Unlabored breathing with decreased breath sounds at the left base. No wheeze. HEART: S1, S2. Regular rate and rhythm. ABDOMEN: Soft, no tenderness. EXTREMITIES: No edema of the feet. SKIN EXAMINATION: No rashes. No mass palpable. There is no evidence of any rash on the left lower chest wall or the back area. NEUROLOGICAL: The patient is awake, alert, oriented x3. Mood and affect normal. LABS: Hemoglobin is 11.1, white count 5.2 with a BUN of 63, creatinine 3.30. Admission creatinine was 2.03. His urine is negative. Chest x-ray and CAT scan report as mentioned above. DIAGNOSTIC IMPRESSION AND PLAN: 1. Patient with a low-grade fever and did have left lower chest pain that is a possibility of possible costochondritis versus pneumonitis; however, the patient did have a CT of the chest that did not show any evidence of any pneumonia. Follow-up CT did show some atelectasis, underlying pneumonia though cannot be entirely excluded. The patient overall improvement on his Rocephin as the patient has no other clinical focus of infection. No abnormality was seen on CT of abdomen and pelvis. Urine has been negative. No evidence of cellulitis. 2. Patient noted to have PENICILLIN allergy, limits number of antibiotics that could be safely used. PLAN: 1. Patient to continue on Rocephin 1 gram IV daily. 2. Patient may benefit from a VQ scan in view of his left lower chest pain. A CT chest cannot be done because of renal function The other possibility of PE. 3. Will discuss with admitting. 4. Will follow up on his clinical condition and cultures to further adjust the medication if needed. Thank you for this consultation. Will follow this patient along with you. JACOB
--- NOTE | 2016-12-12 08:35 | PN ---
Patient is admitted for acute renal failure from possible acute tubular necrosis, improving creatinine. Patient had metabolic toxic encephalopathy, which is improving at this point of time. CT of the head is negative for any acute issue. Nephrology is evaluating the patient. Patient has a low-grade fever, source of infection is unknown. Chest x-ray, urine cultures are essentially negative and patient is on empiric antibiotic in the form of Zosyn. Depending on how he does, decision need to be made whether we need to continue antibiotics upon discharge or not. Although if needed to be continued, empiric antibiotic of Augmentin for a week with a total course of antibiotics for a week is reasonable. Patient although appears to be overall improving, echocardiogram showed normal ejection fraction. No significant pulmonary hypertension. Although IVC was not visualized well, because of which there is comment an IVC. There is mild pulmonary hypertension. REVIEW OF SYSTEMS: CARDIOVASCULAR: No chest pain, no orthopnea, no PND, no palpitations. PULMONARY: Denied any shortness of breath. No cough or hemoptysis. GASTROINTESTINAL: No diarrhea, nausea or vomiting. No abdominal pain. Normoactive bowel sounds. NEUROLOGIC: No headaches, no weakness, no numbness. Medications were reviewed. PHYSICAL EXAMINATION: Temperature 97.7, pulse of 82, respiratory rate of 20, blood pressure 109/59, saturating at 94% on 4 L of O2 by nasal cannula. GENERAL: Patient is drowsy, arousable, oriented x3, morbidly obese, not in apparent respiratory distress. HEENT: Pupils are round and equally reacting to light. EOMI. No scleral icterus. No conjunctival pallor. Normocephalic, atraumatic. No pharyngeal erythema. No thyromegaly. CARDIOVASCULAR: S1 and S2 present. No murmurs, rubs, or gallops. PULMONARY: Chest is clear to auscultation, no wheezing or crackles. ABDOMEN: Soft, nontender, nondistended, normoactive bowel sounds. No palpable organomegaly. MUSCULOSKELETAL: No joint swelling or deformity. EXTREMITIES: No cyanosis, clubbing, or pedal edema. NEUROLOGICAL: Gross neurological examination did not reveal any focal deficits. SKIN: No rashes. LABORATORY DATA: Basic metabolic profile is abnormal for elevated sodium of 146, chloride of 109, BUN of 63, creatinine of 3.3, BUN and creatinine are improved compared to yesterday. ASSESSMENT AND PLAN: 1. Acute renal failure due to acute tubular necrosis. Continue with IV fluids. 2. Fever and systemic inflammatory response syndrome without any clearcut source of infection. Continue with empiric antibiotics for now until we get the finalization of the blood cultures. 3. Morbid obesity. 4. Hypoxemia and hypoxic respiratory failure; unsure of the exact etiology. Patient does not have any clear-cut pneumonia. ABGs are consistent with hypoxemia. Beyond that, I do not have much of the information, although his hypoxemia improving. Patient may have a component of chronic obstructive pulmonary disease. Continue with systemic steroids and inhalational treatments. Morbid obesity and restrictive lung disease is probably contributing to his shortness of breath. His lungs are although clear to auscultation. 5. Hypertension. 6. Hyperlipidemia. 7. Benign prostatic hypertrophy. PLAN: Continue with present antibiotics. Continue with IV fluids. Discharge in a day or two depending on his kidney function and his overall progress in his clinical condition. PT and OT consult was obtained.
[2016-12-12 08:58] LABS: CH 33.1; CHCM 33.1; HCT 33.3 % (39.0-53.0); HDW 2.71; HGB 11.1 gm/dL (13.0-17.5); MCH 33.4 pg (25.0-35.0); MCHC 33.2 g/dL (31.0-37.0); MCV 100.4 fL (80.0-100.0); Mean Platelet Volume 7.9; RBC 3.32 m/uL (4.30-5.90); RDW 13.1 % (11.5-15.5); WBC 3.4 k/uL (3.8-10.6)
[2016-12-12 09:09] LABS: Calcium 8.9 mg/dL (8.4-10.2); Potassium 4.8 mmol/L (3.5-5.1)
--- NOTE | 2016-12-12 11:01 | P.PN ---
Subjective Patient is seen in follow-up for acute kidney injury. Patient has chronic kidney disease stage III with baseline creatinine near 1.4 as of March 2016. His creatinine this admission was 2 and peaked at 4.23 this admission. He was noted to have urinary retention and a Mckeon catheter was inserted. He is nonoliguric with urine output greater than 2 L in the last 24 hours. His appetite is good. Denies any vomiting or diarrhea. Denies active chest pain or shortness of breath. He did spike a temperature this admission however cultures remain negative. Urinalysis and renal ultrasound are noted to be quite benign. Vital signs are stable. General: The patient appeared well nourished and normally developed. HEENT: Head exam is unremarkable. Neck is without jugular venous distension. LUNGS: Lungs are clear to auscultation and percussion. Breath sounds decreased. HEART: Rate and Rhythm are regular. First and second heart sounds normal. No murmurs, rubs or gallops. ABDOMEN: Abdominal exam reveals normal bowel sounds. Non-tender and non- distended. No evidence of peritonitis. EXTREMITITES: No clubbing, cyanosis, or edema. Objective - Vital Signs Vital signs: Vital Signs Temp 97.3 F L 12/12/16 07:00 Pulse 72 12/12/16 07:58 Resp 20 12/12/16 07:00 BP 159/77 12/12/16 07:00 Pulse Ox 95 12/12/16 07:44 Intake & Output 12/11/16 12/12/16 12/12/16 18:59 06:59 18:59 Intake Total 1020 Output Total 1100 1100 Balance -1100 -80 Intake: Oral 1020 Output: Urine 1100 1100 Other: # Bowel Movements 1 - Labs CBC & Chem 7: 12/12/16 08:08 12/12/16 08:08 Labs: Abnormal Lab Results - Last 24 Hours (Table) 12/11/16 12/11/16 12/11/16 Range/Units 11:44 17:07 20:11 WBC (3.8-10.6) k/uL RBC (4.30-5.90) m/uL Hgb (13.0-17.5) gm/dL Hct (39.0-53.0) % MCV (80.0-100.0) fL Plt Count (150-450) k/uL Chloride (98-107) mmol/L Carbon Dioxide (22-30) mmol/L BUN (9-20) mg/dL Creatinine (0.66-1.25) mg/dL Glucose (74-99) mg/dL POC Glucose (mg/dL) 189 H 119 H 249 H (75-99) mg/dL 12/12/16 12/12/16 12/12/16 Range/Units 06:54 08:08 08:08 WBC 3.4 L (3.8-10.6) k/uL RBC 3.32 L (4.30-5.90) m/uL Hgb 11.1 L (13.0-17.5) gm/dL Hct 33.3 L (39.0-53.0) % MCV 100.4 H (80.0-100.0) fL Plt Count 124 L (150-450) k/uL Chloride 112 H (98-107) mmol/L Carbon Dioxide 21 L (22-30) mmol/L BUN 49 H (9-20) mg/dL Creatinine 2.40 H (0.66-1.25) mg/dL Glucose 130 H (74-99) mg/dL POC Glucose (mg/dL) 138 H (75-99) mg/dL Microbiology - Last 24 Hours (Table) 12/09/16 22:00 Blood Culture - Preliminary Blood No Growth after 48 hours 12/09/16 22:20 Blood Culture - Preliminary Blood No Growth after 48 hours 12/10/16 19:40 Blood Culture - Preliminary Blood No Growth after 24 hours 12/10/16 18:54 Blood Culture - Preliminary Blood No Growth after 24 hours 12/10/16 10:00 Urine Culture - Final Urine,Voided Assessment and Plan Plan: Assessment: #1. Nonoliguric acute kidney injury secondary to ischemic ATN secondary to hemodynamic instability and urinary retention. Creatinine peaked at 4.3 this admission and is down to 2.4 today. #2. Chronic kidney disease stage III with baseline creatinine near 1.4 as of March 2016. Etiology is diabetic kidney disease. No evidence of hydronephrosis noted on renal ultrasound. No hematuria. #3. Type 2 diabetes mellitus. #4. History of BPH. Plan: Hep-Lock IV fluids. Follow-up cultures. Avoid nephrotoxic agents and hypotensive episodes. Maintain Mckeon catheter. Continue Flomax. Repeat electrolytes in the morning.
[2016-12-12 12:07] LABS: Glucose,Whole Blood 175 mg/dL (75-99)
[2016-12-12] MEDS: HYDROcodone/APAP 5-325MG 1 EACH TAB PO PRN (15:22)
[2016-12-12 17:44] LABS: Glucose,Whole Blood 182 mg/dL (75-99)
[2016-12-12 20:42] LABS: Glucose,Whole Blood 191 mg/dL (75-99)
[2016-12-12] MEDS: QUEtiapine 25 MG TAB PO PRN (20:59)
[2016-12-13 07:08] LABS: Glucose,Whole Blood 138 mg/dL (75-99)
[2016-12-13] MEDS: GABAPENTIN 300 MG CAP PO SCH (07:44)
[2016-12-13] MEDS: INSULIN LISPRO (humaLOG) 300 UNIT/3 ML VIAL SQ SCH ×4 (07:45→20:57)
[2016-12-13] MEDS: FENOFIBRATE 160 MG TAB PO SCH (07:45)
[2016-12-13] MEDS: LINAGLIPTIN 5 MG TABLET PO SCH (07:45)
[2016-12-13] MEDS: ALLOPURINOL 100 MG TAB PO SCH ×2 (07:45→20:57)
[2016-12-13] MEDS: FAMOTIDINE 20 MG TAB PO SCH (07:45)
[2016-12-13] MEDS: PROPRANOLOL LA 80 MG CAP.SA.24H PO SCH (07:45)
[2016-12-13] MEDS: TAMSULOSIN 0.4 MG CAP.ER.24H PO SCH (07:45)
[2016-12-13] MEDS: IPRATROPIUM-ALBUTEROL 3 ML NEB INHALATION SCH ×4 (07:49→20:22)
[2016-12-13] MEDS: SYMBICORT 80-4.5 MCG INHALER INHALATION SCH ×2 (07:49→20:22)
[2016-12-13 07:56] LABS: Basophils % (A) 1 %; CH 33.2; CHCM 33.4; Eosinophils # (A) 0.2 k/uL (0-0.7); Eosinophils % (A) 5 %; HCT 32.9 % (39.0-53.0); HDW 2.76; HGB 11.2 gm/dL (13.0-17.5); Luc % (Auto) 2; Lymphocytes # (A) 0.4 k/uL (1.0-4.8); Lymphocytes % (A) 10 %; MCH 33.9 pg (25.0-35.0); MCHC 33.9 g/dL (31.0-37.0); MCV 99.9 fL (80.0-100.0); Mean Platelet Volume 8.7; Monocytes # (A) 0.2 k/uL (0-1.0); Monocytes % (A) 5 %; Neutrophils # (A) 3.4 k/uL (1.3-7.7); Neutrophils % (A) 77 %; RBC 3.29 m/uL (4.30-5.90); RDW 13.1 % (11.5-15.5); WBC 4.4 k/uL (3.8-10.6); WBC (Perox) 4.52
[2016-12-13 08:14] LABS: Calcium 9.2 mg/dL (8.4-10.2); Potassium 5.3 mmol/L (3.5-5.1)
[2016-12-13] MEDS: HYDROcodone/APAP 5-325MG 1 EACH TAB PO PRN ×2 (09:01→17:04)
--- NOTE | 2016-12-13 10:02 | PN ---
DATE OF SERVICE: 12/12/2016 INTERVAL HISTORY: Mr. Rolle is a 71 -year-old male with known history of hypertension, hyperlipidemia, was initially admitted to the hospital with hypoxic respiratory failure and acute kidney injury and due to possible acute tubular necrosis, currently, creatinine is improving now. Patient also had metabolic encephalopathy and toxic encephalopathy on admission, which is improving as well. CT head is negative without any acute issues. His creatinine level is improving now. Nephrology and ID is following the patient. The patient had a chest x-ray, showed no evidence of pneumonia. Urine cultures and are negative. The patient currently on antibiotics in the form for ceftriaxone as per ID. Otherwise, patient denied any complaints of worsening shortness of breath. Patient saturating well on room air. Patient does use CPAP machine at home. Denied any complaints of worsening shortness of breath. No short of breath. No chest pain. No acute overnight issues. No fever. No chills. REVIEW OF SYSTEMS: CONSTITUTIONAL: No fever. No chills. No weakness or malaise. RESPIRATORY: No cough, the patient does have short of breath, improving. CARDIOVASCULAR: No chest pain. No leg swelling. ABDOMEN: No nausea, vomiting or abdominal pain. GENITOURINARY: Negative. ENDOCRINE: Negative. PSYCHIATRY: Negative. All other 14 point review of systems negative except as above. Current medications include: 1. Tylenol. 2. [place]. 3. Duoneb. 4. Allopurinol. 5. Cepacol. 6. Symbicort. 7. Ceftriaxone. 8. Famotidine. 9. Fenofibrate. 10. Gabapentin. 11. Humalog. 12. Tradjenta. 13. ( ). 14. Ativan. 15. Morphine sulfate. 16. Narcan. 17. Propranolol. 18. Seroquel. 19. Flomax. PHYSICAL EXAMINATION: A 71-year-old male sitting in a chair comfortably. Awake, alert, oriented, x3. He appears in no apparent distress. VITALS: Blood pressure 123/71, pulse is 60, respirations 18, temperature afebrile, pulse ox saturating well on room air. HEENT: Atraumatic, normocephalic. Neck is supple. No JVD. CVS, S2 heard. LUNGS: Bilateral air entry is present, minimal crackles at the bases. Nonlabored breathing. ABDOMEN: Soft, nontender, obese. Bowel sounds are present. CHILD NUTRITION ASSISTANT: Awake, alert and oriented times three. No focal neurologic deficit. Cranial nerves grossly intact. EXTREMITIES: No edema. Pulses palpable bilaterally. No clubbing or cyanosis. PSYCHIATRIC: Cooperative. LABORATORY DATA: WBC 3.4, hemoglobin 11.1, platelets 124 and MCV 100.4, sodium 144, potassium 4.8, chloride 112, bicarb is 21, BUN 49, creatinine 2.4. Blood sugar is 130, calcium 8.9. IMPRESSION: 1. Acute kidney injury, most likely with possible acute tubular necrosis. Creatinine level improved to 2.4 today. Continue with IV fluids. Fever and systemic inflammatory response syndrome with possible pneumonitis and possible costochondritis. Continue on antibiotics in the form ceftriaxone. Infectious disease is following. The patient did improve clinically with ceftriaxone. 2. Acute metabolic encephalopathy and toxic encephalopathy. CT head is negative. 3. Acute hypoxic respiratory failure on admission. 4. Morbid obesity, obesity hypoventilation syndrome. 5. Hypertension. 6. Diabetes type 2, [id number]. 7. Hyperlipidemia. 8. Benign prostatic hypertrophy. DISCUSSION AND PLAN: Patient will be continued on antibiotics in the form of ceftriaxone. Continue breathing treatments and continue with IV fluids. We will follow up renal function. Otherwise PT, OT and further recommendations based on clinical course. Mental status is much improved now.
--- NOTE | 2016-12-13 11:26 | P.PN ---
Subjective Patient is seen in follow-up for acute kidney injury. Patient has chronic kidney disease stage III with baseline creatinine near 1.4 as of March 2016. His creatinine this admission was 2 and peaked at 4.23 this admission. He was noted to have urinary retention and a Mckeon catheter was inserted. He is nonoliguric. His appetite is good. Denies any vomiting or diarrhea. Denies active chest pain or shortness of breath. He did spike a temperature this admission however cultures remain negative. Urinalysis and renal ultrasound are noted to be quite benign. Vital signs are stable. General: The patient appeared well nourished and normally developed. HEENT: Head exam is unremarkable. Neck is without jugular venous distension. LUNGS: Lungs are clear to auscultation and percussion. Breath sounds decreased. HEART: Rate and Rhythm are regular. First and second heart sounds normal. No murmurs, rubs or gallops. ABDOMEN: Abdominal exam reveals normal bowel sounds. Non-tender and non- distended. No evidence of peritonitis. EXTREMITITES: No clubbing, cyanosis, or edema. Objective - Vital Signs Vital signs: Vital Signs Temp 97.3 F L 12/12/16 23:00 Pulse 60 12/13/16 07:00 Resp 19 12/13/16 07:00 BP 143/68 12/13/16 07:00 Pulse Ox 98 12/13/16 07:00 Intake & Output 12/12/16 12/13/16 12/13/16 18:59 06:59 18:59 Output Total 1200 500 Balance -1200 -500 Output: Urine 1200 500 Other: Voiding Method Indwelling Catheter Indwelling Catheter Indwelling Catheter # Voids 1 # Bowel Movements 1 1 - Labs CBC & Chem 7: 12/13/16 07:27 12/13/16 07:27 Labs: Abnormal Lab Results - Last 24 Hours (Table) 12/12/16 12/12/16 12/12/16 Range/Units 11:57 17:31 20:40 RBC (4.30-5.90) m/uL Hgb (13.0-17.5) gm/dL Hct (39.0-53.0) % Plt Count (150-450) k/uL Lymphocytes # (1.0-4.8) k/uL Potassium (3.5-5.1) mmol/L Chloride (98-107) mmol/L Carbon Dioxide (22-30) mmol/L BUN (9-20) mg/dL Creatinine (0.66-1.25) mg/dL Glucose (74-99) mg/dL POC Glucose (mg/dL) 175 H 182 H 191 H (75-99) mg/dL 12/13/16 12/13/16 12/13/16 Range/Units 07:05 07:27 07:27 RBC 3.29 L (4.30-5.90) m/uL Hgb 11.2 L (13.0-17.5) gm/dL Hct 32.9 L (39.0-53.0) % Plt Count 140 L (150-450) k/uL Lymphocytes # 0.4 L (1.0-4.8) k/uL Potassium 5.3 H (3.5-5.1) mmol/L Chloride 113 H (98-107) mmol/L Carbon Dioxide 21 L (22-30) mmol/L BUN 42 H (9-20) mg/dL Creatinine 2.24 H (0.66-1.25) mg/dL Glucose 144 H (74-99) mg/dL POC Glucose (mg/dL) 138 H (75-99) mg/dL Microbiology - Last 24 Hours (Table) 12/09/16 22:00 Blood Culture - Preliminary Blood No Growth after 72 hours 12/09/16 22:20 Blood Culture - Preliminary Blood No Growth after 72 hours 12/10/16 19:40 Blood Culture - Preliminary Blood No Growth after 48 hours 12/10/16 18:54 Blood Culture - Preliminary Blood No Growth after 48 hours Assessment and Plan Plan: Assessment: #1. Nonoliguric acute kidney injury secondary to ischemic ATN secondary to hemodynamic instability and urinary retention. Creatinine peaked at 4.3 this admission and is down to 2.24 today. #2. Chronic kidney disease stage III with baseline creatinine near 1.4 as of March 2016. Etiology is diabetic kidney disease. No evidence of hydronephrosis noted on renal ultrasound. No hematuria. #3. Type 2 diabetes mellitus. #4. History of BPH. Plan: Hep-Lock IV fluids. Follow-up cultures. Avoid nephrotoxic agents and hypotensive episodes. Maintain Mckeon catheter. Continue Flomax. Potential discharge to rehab today. He will need to follow-up as an outpatient in the next 2 weeks.
--- NOTE | 2016-12-13 12:00 | PN ---
DATE OF SERVICE: 12/12/2016 Reason for followup is left lower AP chest pain and a question of community-acquired pneumonia. INTERVAL HISTORY: The patient is afebrile. The patient is breathing comfortably. The pain to the left lower chest wall has improved. He did have mild cough and bringing up some minimal amount of yellow sputum. Patient denies having any nausea, vomiting. No abdominal pain or any diarrhea. On examination, blood pressure 123/71 with a pulse of 62, temperature 98. He is 96% on 2 L nasal cannula. General description is an elderly male, lying in bed in no distress. RESPIRATORY SYSTEM: Unlabored breathing. Some decreased breath sound at the base. No wheeze. HEART: S1, S2, regular rate and rhythm. ABDOMEN: Soft. No tenderness. LABS: Hemoglobin 11.1, white count of 3.4 with a BUN of 49, creatinine 2.40. Blood culture has been negative. DIAGNOSTIC IMPRESSION AND PLAN: Patient with left lower wall chest pain along with cough and some yellow sputum with infiltrate seen on the chest CT with likely a component of possible community-acquired pneumonia responding to the Rocephin that will be continued. Will try to obtain a sputum. Family present at beside. Their questions were answered.
[2016-12-13 12:21] LABS: Glucose,Whole Blood 147 mg/dL (75-99)
[2016-12-13 16:44] LABS: Glucose,Whole Blood 183 mg/dL (75-99)
--- NOTE | 2016-12-13 17:52 | PN ---
DATE OF SERVICE: 12/13/2016 REASON FOR FOLLOWUP: Possible left lower lobe pneumonia. INTERVAL HISTORY: The patient is afebrile. He has been breathing comfortably. Still has some cough with minimal sputum production. Chest pain is improved. Denies having any abdominal pain. No nausea, vomiting or any diarrhea. On examination, blood pressure is 143/68 with a pulse of 60, temperature 97.3. He is 98% on 5 L nasal cannula. General description is an elderly male lying in bed in no distress. RESPIRATORY SYSTEM: Unlabored breathing. Some coarse breath sounds at the base. No wheeze. HEART: S1, S2. Regular rate and rhythm. ABDOMEN: Soft. No tenderness. LABS: Hemoglobin 11.2, white count of 4.4 with a BUN of 42, creatinine 2.24. DIAGNOSTIC IMPRESSION AND PLAN: This is a patient with left lower chest pain. He did have a cough with some minimal sputum production and a low-grade fever, likely a community-acquired pneumonia, responding to the Rocephin. That will be continued with a plan to finish therapy with p.o. Ceftin. Continue supportive care.
[2016-12-13 20:57] LABS: Glucose,Whole Blood 193 mg/dL (75-99)
[2016-12-14 07:02] LABS: Glucose,Whole Blood 143 mg/dL (75-99)
[2016-12-14] MEDS: SYMBICORT 80-4.5 MCG INHALER INHALATION SCH (07:30)
[2016-12-14] MEDS: IPRATROPIUM-ALBUTEROL 3 ML NEB INHALATION SCH ×2 (07:30→11:45)
[2016-12-14 08:03] VITALS: BP 130/75; TEMP 96.2
[2016-12-14] MEDS: FENOFIBRATE 160 MG TAB PO SCH (08:03)
[2016-12-14] MEDS: TAMSULOSIN 0.4 MG CAP.ER.24H PO SCH (08:03)
[2016-12-14] MEDS: GABAPENTIN 300 MG CAP PO SCH (08:03)
[2016-12-14] MEDS: LINAGLIPTIN 5 MG TABLET PO SCH (08:03)
[2016-12-14] MEDS: ALLOPURINOL 100 MG TAB PO SCH (08:04)
[2016-12-14] MEDS: FAMOTIDINE 20 MG TAB PO SCH (08:04)
[2016-12-14] MEDS: INSULIN LISPRO (humaLOG) 300 UNIT/3 ML VIAL SQ SCH ×2 (08:09→12:17)
[2016-12-14] MEDS ORDERED: amLODIPine 10 MG TAB PO SCH (09:00)
[2016-12-14 09:23] LABS: Calcium 9.8 mg/dL (8.4-10.2); Potassium 5.1 mmol/L (3.5-5.1)
--- NOTE | 2016-12-14 11:24 | P.PN ---
Subjective Patient is seen in follow-up for acute kidney injury. Patient has chronic kidney disease stage III with baseline creatinine near 1.4 as of March 2016. His creatinine this admission was 2 and peaked at 4.23 this admission. He was noted to have urinary retention and a Mckeon catheter was inserted. He is nonoliguric. His appetite is good. Denies any vomiting or diarrhea. Denies active chest pain or shortness of breath. He did spike a temperature this admission however cultures remain negative. Urinalysis and renal ultrasound are noted to be quite benign. No active complaints. Vital signs are stable. General: The patient appeared well nourished and normally developed. HEENT: Head exam is unremarkable. Neck is without jugular venous distension. LUNGS: Lungs are clear to auscultation and percussion. Breath sounds decreased. HEART: Rate and Rhythm are regular. First and second heart sounds normal. No murmurs, rubs or gallops. ABDOMEN: Abdominal exam reveals normal bowel sounds. Non-tender and non- distended. No evidence of peritonitis. EXTREMITITES: No clubbing, cyanosis, or edema. Objective - Vital Signs Vital signs: Vital Signs Temp 96.2 F L 12/14/16 07:00 Pulse 56 L 12/14/16 07:40 Resp 18 12/14/16 07:00 BP 130/75 12/14/16 07:00 Pulse Ox 94 L 12/14/16 07:00 Intake & Output 12/13/16 12/14/16 12/14/16 18:59 06:59 18:59 Output Total 700 Balance -700 Output: Urine 700 Other: Voiding Method Indwelling Catheter Indwelling Catheter # Voids 1 # Bowel Movements 1 1 - Labs CBC & Chem 7: 12/13/16 07:27 12/14/16 08:42 Labs: Abnormal Lab Results - Last 24 Hours (Table) 12/13/16 12/13/16 12/13/16 Range/Units 12:20 16:43 20:56 Chloride (98-107) mmol/L BUN (9-20) mg/dL Creatinine (0.66-1.25) mg/dL Glucose (74-99) mg/dL POC Glucose (mg/dL) 147 H 183 H 193 H (75-99) mg/dL 12/14/16 12/14/16 Range/Units 06:56 08:42 Chloride 110 H (98-107) mmol/L BUN 40 H (9-20) mg/dL Creatinine 2.02 H (0.66-1.25) mg/dL Glucose 191 H (74-99) mg/dL POC Glucose (mg/dL) 143 H (75-99) mg/dL Microbiology - Last 24 Hours (Table) 12/09/16 22:00 Blood Culture - Preliminary Blood No Growth after 96 hours 12/09/16 22:20 Blood Culture - Preliminary Blood No Growth after 96 hours 12/10/16 19:40 Blood Culture - Preliminary Blood No Growth after 72 hours 12/10/16 18:54 Blood Culture - Preliminary Blood No Growth after 72 hours Assessment and Plan Plan: Assessment: #1. Nonoliguric acute kidney injury secondary to ischemic ATN secondary to hemodynamic instability and urinary retention. Creatinine peaked at 4.3 this admission and is down to 2.02 today. #2. Chronic kidney disease stage III with baseline creatinine near 1.4 as of March 2016. Etiology is diabetic kidney disease. No evidence of hydronephrosis noted on renal ultrasound. No hematuria. #3. Type 2 diabetes mellitus. #4. History of BPH. Plan: Hep-Lock IV fluids. Follow-up cultures. Avoid nephrotoxic agents and hypotensive episodes. Maintain Mckeon catheter. Continue Flomax. Potential discharge to rehab today. He will need to follow-up as an outpatient in the next 2 weeks.
[2016-12-14 11:48] LABS: Glucose,Whole Blood 189 mg/dL (75-99)
[2016-12-14 12:58] VITALS: PULSE 60
[2016-12-14 13:03] VITALS: RESP 16
[2016-12-14] MEDS ORDERED: CEFUROXIME 250 MG TAB PO SCH (13:15)
--- NOTE | 2016-12-14 13:58 | DS ---
DATE OF ADMISSION: 12/09/2016 DATE OF DISCHARGE: 12/14/2016 DISCHARGE DIAGNOSES: 1. Acute hypoxic respiratory failure on admission. 2. Fever with sepsis with possible pneumonia. The other differentials include: Pneumonitis and costochondritis, improved with ceftriaxone changed to p.o. Ceftin. ID has seen the patient. The patient tolerated cephalosporin very well in the hospital. 3. Acute metabolic encephalopathy secondary to infection and acute kidney injury. CT head is negative, improved now. 4. Acute hypoxic respiratory failure on admission. 5. Morbid obesity with obesity of hypoventilation syndrome on CPAP. 6. Obstructive sleep apnea on CPAP at home. 7. Hypertension. 8. Diabetes type 2, [id number]. 9. Hyperlipidemia. 10. Benign prostatic hypertrophy. 11. Deep venous thrombosis prophylaxis. HOSPITAL COURSE: Mr. Rolle is a 71-year-old male with known multiple medical problems as discussed above admitted to the hospital with hypoxic respiratory failure and found to have acute kidney injury. Patient was treated with ceftriaxone for possible pneumonia/pneumonitis and sepsis. The patient did improve clinically and breathing status is much improved now. Otherwise patient was continued on IV fluids. Renal function improved from creatinine more 4.2 to 2.0 today. Patient is tolerating p.o. diet. Nephrology and ID have seen the patient and the patient was continued on IV antibiotics in the form of ceftriaxone while in the hospital, which will be changed to Ceftin. Patient tolerated medications, cephalosporins and apparently the patient does have ALLERGY TO PENICILLIN present previously. Patient is clinically stable to be discharged home. His mental status is at baseline. Alert and oriented x3. No acute overnight issues. Patient will be discharged to rehab when in stable condition. DISCHARGE PHYSICAL EXAMINATION: A 71-year-old male lying in bed comfortably, awake, alert, oriented x3, appears to be in no apparent distress. VITALS: Blood pressure is 130/75, pulse is 60, respirations 18, temperature afebrile, and pulse ox 94% on 4 liters nasal cannula. LABORATORY DATA: Sodium 144, potassium 5.1, chloride 110, bicarb is 22, BUN 40, creatinine 2.02, blood sugar is 191, calcium 9.8. Discharge physical examination done. HEART: S1, S2. LUNGS: Minimal crackles at the base, right side. Nonlabored breathing. No wheezing. ABDOMEN: Soft, nontender. Bowel sounds present. SPECIFICATIONS CHECKER: Alert, awake, and oriented x3, no focal deficit. EXTREMITIES: No edema. Pulses palpable bilaterally. No clubbing or cyanosis. PSYCHIATRIC: Cooperative. Discharge Medications include: 1. Allopurinol 100 mg p.o. b.i.d. 2. Symbicort 2 puffs b.i.d. 3. Glimepiride 1 mg p.o. daily. 4. Linagliptin 5 mg p.o. daily. 5. Meclizine 25 mg p.o. t.i.d. 6. Fenofibrate 160 mg p.o. daily. 7. Gabapentin 10 mg p.o. daily. 8. Alfacalcidol vitamin D2 50,000 units p.o. Sunday. 9. Colace 100 mg p.o. b.i.d. p.r.n. for constipation. 10. [place] 5/325 1 tablet q.6 hourly p.r.n. for pain. 11. DuoNeb 3 mL inhalation q.i.d. 12. Flomax 0.4 mg p.o. a.c. breakfast. 13. Ceftin 500 mg p.o. b.i.d. for 3 days. 14. Amlodipine 10 mg p.o. daily. Patient will be discharged to rehab in stable condition. Discharge activity as tolerated. Heart healthy diet and diabetic diet. Follow with Dr. Kimble. Time taken more than 35 minutes with 8 minutes counseling the patient and coordinating care.
--- NOTE | 2016-12-14 15:10 | PN ---
DATE OF SERVICE: 12/13/2016 Mr. Rolle is a 71-year-old male with known history of hypertension, hyperlipidemia who was admitted to the hospital with hypoxic respiratory failure and acute kidney injury, possibly ATN. Creatinine is currently improving now. Nephrology is following patient. Otherwise patient was being treated for possible pneumonia with ceftriaxone. Patient did improve clinically. White count is normalized and ID and nephrology is following this patient. Currently, patient denied any complaints of chest pain or shortness of breath. No nausea or vomiting, abdominal pain. No acute overnight issues. REVIEW OF SYSTEMS: CONSTITUTIONAL: No fever. No chills. RESPIRATORY: No cough or shortness of breath. CARDIOVASCULAR: No chest pain or shortness of breath. ABDOMEN: No nausea, vomiting or abdominal pain. GENITOURINARY: Negative. ENDOCRINE: Negative. PSYCHIATRY: Negative. All other review of systems negative except as above. CURRENT MEDICATIONS: Reviewed. PHYSICAL EXAMINATION: A 71-year-old man lying in bed comfortably. Awake, alert oriented x3. Appears to be in no apparent distress. VITALS: Blood pressure 138/71. Pulse is 54, respirations 16, temperature afebrile. Pulse ox is 97% on 4-L nasal cannula. HEENT: Atraumatic, normocephalic. Neck is supple. No JVD. CVS: S1, S2 heard. No murmurs, no gallop. LUNGS: Bilateral air entry is present. Minimal crackles at the base on the right side. Nonlabored breathing. ABDOMEN: Soft, nontender. Bowel sounds present. LINGO CLEANER: Awake, alert, oriented x3. No focal deficit. EXTREMITIES: No edema. Pulses palpable bilaterally. No clubbing or cyanosis. PSYCHIATRIC: Cooperative. LABORATORY DATA: WBC 4.4, hemoglobin 11.2, platelets 140, sodium 143, potassium 5.3, chloride 113, bicarb is 21 BUN 42, creatinine 2.24. Calcium 9.2. IMPRESSION: 1. Acute kidney injury secondary to acute tubular necrosis. Creatinine improved to 2.2 today. IV fluids have been held and the patient is tolerating p.o. diet. 2. Fever and systemic inflammatory response syndrome/sepsis, more likely pneumonia, possible pneumonitis and possible costochondritis. The patient did respond well to ceftriaxone. We will continue with the ceftriaxone at this time. ID is following and possible complete antibiotic course with p.o. antibiotics for possible pneumonia. 3. Acute metabolic encephalopathy and toxic encephalopathy, improved now. CT head is negative. 4. Acute hypoxic respiratory failure on admission. 5. Morbid obesity and obesity hypoventilation syndrome. 6. Hypertension. 7. Type 2 diabetes mellitus. 8. Hyperlipidemia. 9. Benign prostatic hypertrophy. 10. On CPAP at home. DISCUSSION AND PLAN: Patient will be continued on antibiotics in the form of ceftriaxone and monitor renal function and patient has been bradycardic with heart rate in 50s. Will hold propranolol at this time and start him on Norvasc 10 mg daily and continue to follow closely. Continue to monitor the patient and continue the PT, OT. Anticipate discharge to rehab tomorrow. Further recommendations based the clinical course.
--- NOTE | 2016-12-14 20:51 | PN ---
DATE OF SERVICE: 12/14/2016 REASON FOR FOLLOWUP: Possible left lower lobe pneumonia. INTERVAL HISTORY: The patient is afebrile, has been breathing comfortably. Cough has decreased in intensity. Patient's chest pain has improved. No abdominal pain or any diarrhea. On examination, blood pressure is 130/75 with a pulse of 60, temperature of 96.2. He is 94% on 4 L nasal cannula. General description is an elderly male lying in bed in no distress. RESPIRATORY SYSTEM: Unlabored breathing. Some decreased breath sounds at the base. No wheeze. HEART: S1, S2. Regular rate and rhythm. ABDOMEN: Soft. No tenderness. LABS: BUN of 40 with a creatinine of 2.02. Blood cultures have been negative. DIAGNOSTIC IMPRESSION AND PLAN: Patient with possible left lower lobe community-acquired pneumonia with overall improvement on the Rocephin. Plan to finish therapy with p.o. Ceftin 500 mg twice a day for another 7 to 10 days. Continue supportive care.
== END 2016-12-14 14:23 | DRG 682 ==
LOC: EC 14:19 → 3OBS 20:58 → OBSVTOIN 12-09 15:31 → 4MS4W 12-09 15:49
PROVIDERS: ADMIT Internal Medicine; ATTEND Internal Medicine
DX: N17.0 Acute kidney failure with tubular necrosis (principal); G92 Toxic encephalopathy; J96.01 Acute respiratory failure with hypoxia; A41.9 Sepsis, unspecified organism; J18.9 Pneumonia, unspecified organism; I13.0 Hypertensive heart and chronic kidney disease with heart failure and stage 1 through stage 4 chronic kidney disease, or unspecified chronic kidney disease; E66.2 Morbid (severe) obesity with alveolar hypoventilation; I50.9 Heart failure, unspecified; E11.22 Type 2 diabetes mellitus with diabetic chronic kidney disease; I27.2 Other secondary pulmonary hypertension; J44.0 Chronic obstructive pulmonary disease with (acute) lower respiratory infection; J98.11 Atelectasis; J44.1 Chronic obstructive pulmonary disease with (acute) exacerbation; E87.5 Hyperkalemia; E78.5 Hyperlipidemia, unspecified; I12.9 Hypertensive chronic kidney disease with stage 1 through stage 4 chronic kidney disease, or unspecified chronic kidney disease; N18.3 Chronic kidney disease, stage 3 (moderate); J98.4 Other disorders of lung; K21.9 Gastro-esophageal reflux disease without esophagitis; N13.30 Unspecified hydronephrosis; M94.0 Chondrocostal junction syndrome [Tietze]; N40.0 Benign prostatic hyperplasia without lower urinary tract symptoms; Z72.0 Tobacco use; Z79.899 Other long term (current) drug therapy; Z82.49 Family history of ischemic heart disease and other diseases of the circulatory system; Z83.3 Family history of diabetes mellitus; Z88.0 Allergy status to penicillin; Z79.84 Long term (current) use of oral hypoglycemic drugs; Z91.041 Radiographic dye allergy status
CPT/HCPCS: 36415; 36600; 70450; 71010; 71250; 74176; 76770; 80048; 80053; 81001; 82150; 82550; 82553; 82570; 82805; 83036; 83690; 83735; 83880; 84300; 84484; 85025; 85027; 85379; 85610; 85730; 87040; 87086; 93005; 93306; 94640; 94660; 94760; 96361; 96372; 96374; 96375; 96376; 99285

== ENCOUNTER 2017-03-16 10:13 | Emergency (ER) | payer MEDICARE, OTHER ==
[2017-03-16 10:28] VITALS: RESP 18
[2017-03-16] MEDS ORDERED: MORPHINE SULFATE 4 MG/ML SYRINGE IVP STA (10:56)
[2017-03-16] MEDS ORDERED: ONDANSETRON 4 MG/2 ML VIAL IVP STA (10:56)
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
[2017-03-16 11:11] LABS: Appearance,Urine Clear (Clear); Bacteria,Urine Rare /hpf; Bilirubin,Urine Negative (Negative); Glucose,Urine (UA) Negative (Negative); Ketones,Urine Negative (Negative); Leukocyte Esterase,Urine Small (Negative); Mucus,Urine Rare /hpf; Nitrite,Urine Negative (Negative); Particle Count 1237; Protein,Urine Negative (Negative); RBC,Urine 1 /hpf (0-5); Specific Gravity,Urine 1.005 (1.001-1.035); Sperm,Urine Few /hpf; Squamous Epithelial Cell,Urine <1 /hpf (0-4); UA Billing (MACRO vs. MICRO) MICRO; Urobilinogen,Urine <2.0 mg/dL (<2.0); WBC,Urine 6 /hpf (0-5)
[2017-03-16 11:18] LABS: Basophils % (A) 1 %; CH 32.2; CHCM 34.1; Eosinophils # (A) 0.1 k/uL (0-0.7); Eosinophils % (A) 3 %; HCT 33.6 % (39.0-53.0); HDW 2.75; HGB 11.9 gm/dL (13.0-17.5); Luc # (Auto) 0.06; Luc % (Auto) 2; Lymphocytes # (A) 0.7 k/uL (1.0-4.8); Lymphocytes % (A) 16 %; MCH 33.5 pg (25.0-35.0); MCHC 35.3 g/dL (31.0-37.0); Mean Platelet Volume 7.6; Monocytes # (A) 0.2 k/uL (0-1.0); Monocytes % (A) 5 %; Neutrophils # (A) 3.2 k/uL (1.3-7.7); Neutrophils % (A) 74 %; RBC 3.54 m/uL (4.30-5.90); RDW 13.7 % (11.5-15.5); WBC 4.3 k/uL (3.8-10.6); WBC (Perox) 4.58
[2017-03-16 11:21] LABS: Calcium 9.6 mg/dL (8.4-10.2); MCV 94.9 fL (80.0-100.0); Potassium 4.5 mmol/L (3.5-5.1); Total Bilirubin 0.4 mg/dL (0.2-1.3); Total Protein 6.6 g/dL (6.3-8.2)
--- NOTE | 2017-03-16 12:42 | CT ---
EXAMINATION TYPE: CT abdomen pelvis wo con DATE OF EXAM: 03/16/2017 COMPARISON: December 08, 2016. HISTORY: Left sided abdominal pain and flank pain. CT DLP: 986.60 mGycm Automated exposure control for dose reduction was used. TECHNIQUE: Helical acquisition of images was performed from the lung bases through the pelvis. FINDINGS: LUNG BASES: Mild dependent changes are noted at both lung bases. Appears similar to the previous stud y if not slightly worsened. Aortic valve calcifications are noted. LIVER/GB: There is a subcentimeter hypodensity identified in the inferior aspect of the right hepatic lobe which is too small to further characterize and appear stable from December 08. The gallbladder is unremarkable. PANCREAS: No significant abnormality is seen. SPLEEN: No significant abnormality is seen. ADRENALS: No significant abnormality is seen. KIDNEYS: There is no hydronephrosis. 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 This is mildly exophytic. FREE AIR: No free air is visualized RETROPERITONEAL ADENOPATHY: None visualized REPRODUCTIVE ORGANS: The prostate is enlarged and impresses upon the inferior aspect of the urinary b ladder. The prostate measures 5 cm in transverse dimension. URINARY BLADDER: No significant abnormality is seen. PELVIC ADENOPATHY: Best seen on series 3 image 111 of 156 there is a left pelvic lymph node/mass wit h minimal surrounding infiltration of the pelvic fat. This is nonspecific finding of doubtful signifi cance. However, it has increased in size since the previous study in November when it measured 9.8 cm. OSSEOUS STRUCTURES: Mild degenerative changes are noted. BOWEL: There is a large air filled focus within the distal descending colon which could relate to a colonic diverticulum. This is of unknown significance. This is best seen on series 3 image 10/09/1954. A few diverticula are identified in the descending colon. There is no evidence of acute diverticulit is. There is a calcification noted in the left hemipelvis which could be related to prior injection g ranuloma. It is felt to be of doubtful significance. OTHER: There are bilateral fat filled inguinal hernias. IMPRESSION: NO ACUTE ABNORMALITY IDENTIFIED. COLONIC DIVERTICULUM OF DOUBTFUL SIGNIFICANCE DESCRIBED ABOVE. THERE IS ALSO MILD DIVERTICULOSIS W ITHOUT EVIDENCE OF ACUTE DIVERTICULITIS. THERE IS A LEFT PELVIC LYMPH NODE/MASS WHICH IS SLIGHTLY INCREASED IN SIZE SINCE THE PREVIOUS STUDY. THIS IS AGAIN OF DOUBTFUL SIGNIFICANCE. CONSIDER 6 MONTH FOLLOW-UP. A CARCINOID TUMOR COULD HAVE THIS APPEARANCE.
[2017-03-16 12:55] VITALS: BP 105/69; PULSE 78; TEMP 98.2
== END 2017-03-16 12:55 | disposition home or self-care (01) ==
LOC: EC 10:13
DX: N39.0 Urinary tract infection, site not specified (principal); E78.5 Hyperlipidemia, unspecified; I10 Essential (primary) hypertension; E11.9 Type 2 diabetes mellitus without complications; J44.9 Chronic obstructive pulmonary disease, unspecified; K21.9 Gastro-esophageal reflux disease without esophagitis; Z87.891 Personal history of nicotine dependence; Z79.51 Long term (current) use of inhaled steroids; Z79.84 Long term (current) use of oral hypoglycemic drugs; Z79.899 Other long term (current) drug therapy; Z88.0 Allergy status to penicillin; Z88.7 Allergy status to serum and vaccine; Z91.011 Allergy to milk products; Z91.040 Latex allergy status; Z87.19 Personal history of other diseases of the digestive system
CPT/HCPCS: 36415; 80053; 82150; 83690; 85025; 81001; 74176; 99284; 96374; 96375; J2270; J2405

== ENCOUNTER 2017-03-19 08:33 | Emergency (ER) | payer MEDICARE, OTHER ==
[2017-03-19] MEDS ORDERED: HYDROmorphone 1 MG/ML 1 ML SYRINGE IVP STA ×2 (09:09→11:44)
[2017-03-19] MEDS ORDERED: SODIUM CHLORIDE 0.9% 1,000 ML IV STA (09:09)
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
[2017-03-19 09:49] LABS: Appearance,Urine Clear (Clear); Bacteria,Urine Occasional /hpf; Bilirubin,Urine Negative (Negative); Glucose,Urine (UA) Negative (Negative); Ketones,Urine Negative (Negative); Leukocyte Esterase,Urine Negative (Negative); Mucus,Urine Rare /hpf; Nitrite,Urine Negative (Negative); Particle Count 671; Protein,Urine 1+ (Negative); RBC,Urine <1 /hpf (0-5); Sperm,Urine Occasional /hpf; UA Billing (MACRO vs. MICRO) MICRO; Urobilinogen,Urine <2.0 mg/dL (<2.0); WBC,Urine 1 /hpf (0-5)
[2017-03-19 09:50] LABS: Basophils % (A) 0 %; CH 32.6; CHCM 33.4; Eosinophils # (A) 0.4 k/uL (0-0.7); Eosinophils % (A) 7 %; HCT 36.8 % (39.0-53.0); HDW 2.67; HGB 12.2 gm/dL (13.0-17.5); Luc # (Auto) 0.06; Luc % (Auto) 1; Lymphocytes # (A) 0.6 k/uL (1.0-4.8); Lymphocytes % (A) 11 %; MCH 32.3 pg (25.0-35.0); MCHC 33.1 g/dL (31.0-37.0); MCV 97.8 fL (80.0-100.0); Mean Platelet Volume 7.5; Monocytes # (A) 0.2 k/uL (0-1.0); Monocytes % (A) 3 %; Neutrophils # (A) 4.4 k/uL (1.3-7.7); Neutrophils % (A) 78 %; RBC 3.76 m/uL (4.30-5.90); WBC 5.6 k/uL (3.8-10.6)
--- NOTE | 2017-03-19 09:57 | XR ---
EXAMINATION TYPE: XR chest 2V DATE OF EXAM: 03/19/2017 COMPARISON: NONE HISTORY: Shortness of breath TECHNIQUE: Frontal and lateral views of the chest are obtained. FINDINGS: Scattered senescent parenchymal changes noted. Hyperinflation compatible with COPD. Increased density right medial lung base may reflect atelectasis or developing infiltrate. Heart size is stable. Mediastinal structures are stable and grossly unremarkable. No evidence for hilar prominence. Degenerative changes dorsal spine. IMPRESSION: 1. Increased density right medial lung base may reflect atelectasis or developing infiltrate.
[2017-03-19 10:02] LABS: Partial Thromboplastin Time 25.5 sec (22.0-30.0)
[2017-03-19 10:03] LABS: Calcium 9.6 mg/dL (8.4-10.2); Magnesium 1.9 mg/dL (1.6-2.3); Potassium 4.9 mmol/L (3.5-5.1); Total Bilirubin 0.7 mg/dL (0.2-1.3); Total Protein 7.2 g/dL (6.3-8.2)
[2017-03-19 10:04] LABS: INR 1.1 (<1.1); Prothrombin Time 11.4 sec (9.0-12.0)
[2017-03-19 10:17] LABS: Creatine Kinase 32 U/L (55-170)
[2017-03-19 10:29] LABS: Creatine Kinase MB 0.8 ng/mL (0.0-2.4); Troponin I <0.012 ng/mL (0.000-0.034)
[2017-03-19] MEDS ORDERED: RX INFO: IV CONTRAST WAS GIVEN 1 EACH MISC MISCELLANE PRN (10:30)
[2017-03-19] MEDS ORDERED: SODIUM CHLORIDE 0.9% 1,000 ML IV ONE (10:30)
--- NOTE | 2017-03-19 11:37 | NM ---
EXAMINATION TYPE: NM pul vent and perfuse DATE OF EXAM: 03/19/2017 COMPARISON: NONE HISTORY: Elevated d-dimer TECHNIQUE: Utilizing inhalation of 69 mCi Tc 99m DTPA aerosol and intravenous injection of 5.5 mCi o f Tc 99m MAA, ventilation and perfusion images are acquired post injection in multiple projections. FINDINGS: There is central accumulation of radiotracer compatible with COPD. There is no evidence for perfusion ventilation mismatch this time. IMPRESSION: Very low probability for pulmonary embolism.
[2017-03-19 12:49] VITALS: BP 106/54; PULSE 60; RESP 16; TEMP 97
== END 2017-03-19 12:49 | disposition home or self-care (01) ==
LOC: EC 08:33
DX: M94.0 Chondrocostal junction syndrome [Tietze] (principal); R79.1 Abnormal coagulation profile; R10.12 Left upper quadrant pain; J44.9 Chronic obstructive pulmonary disease, unspecified; E11.9 Type 2 diabetes mellitus without complications; K21.9 Gastro-esophageal reflux disease without esophagitis; E78.5 Hyperlipidemia, unspecified; I10 Essential (primary) hypertension; M19.90 Unspecified osteoarthritis, unspecified site; Z87.891 Personal history of nicotine dependence; Z79.51 Long term (current) use of inhaled steroids; Z79.899 Other long term (current) drug therapy; Z88.7 Allergy status to serum and vaccine; Z91.040 Latex allergy status; Z88.0 Allergy status to penicillin; Z91.011 Allergy to milk products; Z98.890 Other specified postprocedural states
CPT/HCPCS: 99285; 96374; 96376; 96361 ×2; 36415; 93005; 85379; 83880; 80053; 82150; 82550; 82553; 83690; 83735; 84484; 85025; 85610; 85730; 81001; 71020; 78582; A9540; A9567; J1170

== ENCOUNTER 2017-05-25 12:24 | Inpatient (IN) | payer MEDICARE, OTHER ==
[2017-05-25] MEDS ORDERED: SODIUM CHLORIDE 0.9% 1,000 ML IV STA (12:48)
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
[2017-05-25] MEDS ORDERED: IPRATROPIUM-ALBUTEROL 3 ML NEB INHALATION STA (13:03)
[2017-05-25 13:19] LABS: Basophils % (A) 0 %; CH 33.8; CHCM 35.2; Eosinophils % (A) 0 %; HCT 36.8 % (39.0-53.0); HDW 2.66; HGB 12.7 gm/dL (13.0-17.5); Luc # (Auto) 0.04; Luc % (Auto) 1; Lymphocytes # (A) 0.3 k/uL (1.0-4.8); Lymphocytes % (A) 5 %; MCH 33.3 pg (25.0-35.0); MCHC 34.5 g/dL (31.0-37.0); MCV 96.5 fL (80.0-100.0); Mean Platelet Volume 8.4; Monocytes # (A) 0.2 k/uL (0-1.0); Monocytes % (A) 3 %; Neutrophils # (A) 5.3 k/uL (1.3-7.7); Neutrophils % (A) 91 %; RBC 3.81 m/uL (4.30-5.90); RDW 14.2 % (11.5-15.5); WBC 5.9 k/uL (3.8-10.6); WBC (Perox) 5.62
[2017-05-25 13:27] LABS: INR 1.1 (<1.2); Partial Thromboplastin Time 23.7 sec (22.0-30.0); Prothrombin Time 11.2 sec (9.0-12.0)
[2017-05-25 13:32] LABS: Calcium 9.9 mg/dL (8.4-10.2); Potassium 4.8 mmol/L (3.5-5.1); Total Bilirubin 0.5 mg/dL (0.2-1.3); Total Protein 7.2 g/dL (6.3-8.2)
--- NOTE | 2017-05-25 13:35 | XR ---
EXAMINATION TYPE: XR chest 2V DATE OF EXAM: 05/25/2017 COMPARISON: 03/19/2017 INDICATION: Cough, COPD TECHNIQUE: Frontal and lateral views of the chest are obtained. FINDINGS: The heart size is normal. The pulmonary vasculature is normal. Posterior left basilar infiltrate is present. Correlate for atelectasis or pneumonia. Follow-up is re commended.. IMPRESSION: 1. Posterior infiltrate on the lateral projection suspected at the left base. Atelectasis and pneumon ia should be considered. Follow-up is recommended
[2017-05-25 13:44] LABS: Creatine Kinase 22 U/L (55-170)
[2017-05-25 13:46] LABS: Appearance,Urine Clear (Clear); Bilirubin,Urine Negative (Negative); Glucose,Urine (UA) Negative (Negative); Ketones,Urine Negative (Negative); Leukocyte Esterase,Urine Negative (Negative); Nitrite,Urine Negative (Negative); Protein,Urine Negative (Negative); Specific Gravity,Urine 1.009 (1.001-1.035); UA Billing (MACRO vs. MICRO) CHEM; Urobilinogen,Urine <2.0 mg/dL (<2.0)
[2017-05-25] MEDS ORDERED: LEVOFLOXACIN 500MG-D5W PMX 500 MG in DEXTROSE/WATER 1 100ML.BAG IVPB STA (13:55)
[2017-05-25 13:57] LABS: Creatine Kinase MB 0.7 ng/mL (0.0-2.4); Troponin I <0.012 ng/mL (0.000-0.034)
[2017-05-25] MEDS ORDERED: LEVOFLOXACIN 500MG-D5W PMX 500 MG in DEXTROSE/WATER 1 100ML.BAG IVPB SCH (14:00)
[2017-05-25] MEDS ORDERED: PNEUMONIA PROTOCOL UTILIZED 1 EACH MISC PO PRN (14:05)
[2017-05-25] MEDS: IPRATROPIUM-ALBUTEROL 3 ML NEB INHALATION PRN ×2 (17:13→20:28)
[2017-05-25 17:17] LABS: Glucose,Whole Blood 135 mg/dL (75-99)
[2017-05-25] MEDS: INSULIN LISPRO (humaLOG) 300 UNIT/3 ML VIAL SQ SCH ×2 (17:30→20:48)
[2017-05-25] MEDS: ACETAMINOPHEN TAB 325 MG TAB PO PRN (20:02)
[2017-05-25 20:13] LABS: Glucose,Whole Blood 152 mg/dL (75-99)
[2017-05-25] MEDS: BUDESONIDE 0.5 MG/2 ML NEBU INHALATION SCH (20:28)
[2017-05-25] MEDS: methylPREDNISolone SOD SUCCI 40 MG/ML 1 ML VIAL IV SCH (20:48)
[2017-05-25] MEDS: PROPRANOLOL 40 MG TAB PO SCH (20:48)
[2017-05-25 22:14] LABS: Hemoglobin A1C 6.3 % (4.2-6.1)
[2017-05-26 06:52] LABS: Basophils % (A) 0 %; CH 32.4; CHCM 33.4; Eosinophils % (A) 0 %; HCT 34.5 % (39.0-53.0); HDW 2.64; HGB 11.6 gm/dL (13.0-17.5); Luc # (Auto) 0.06; Luc % (Auto) 1; Lymphocytes # (A) 0.5 k/uL (1.0-4.8); Lymphocytes % (A) 11 %; MCH 32.7 pg (25.0-35.0); MCHC 33.5 g/dL (31.0-37.0); MCV 97.6 fL (80.0-100.0); Mean Platelet Volume 7.9; Monocytes # (A) 0.2 k/uL (0-1.0); Monocytes % (A) 5 %; Neutrophils # (A) 3.7 k/uL (1.3-7.7); Neutrophils % (A) 83 %; RBC 3.53 m/uL (4.30-5.90); RDW 13.7 % (11.5-15.5); WBC 4.5 k/uL (3.8-10.6); WBC (Perox) 4.65
[2017-05-26 07:12] LABS: Calcium 9.4 mg/dL (8.4-10.2); Total Bilirubin 0.5 mg/dL (0.2-1.3); Total Protein 6.2 g/dL (6.3-8.2)
--- NOTE | 2017-05-26 07:26 | XR ---
EXAMINATION TYPE: XR chest 2V DATE OF EXAM: 05/26/2017 COMPARISON: Chest x-ray from yesterday. HISTORY: Chest pain and pneumonia. TECHNIQUE: Frontal and lateral views of the chest are obtained. FINDINGS: Improved inspiration is seen on current study. There is persistent cardiomegaly. There is p ersistent small left pleural effusion seen best on lateral view and associated left basilar atelectas is and/or infiltrate. Right lung remains clear. The osseous structures are intact. IMPRESSION: Cardiomegaly with small left pleural effusion and associated left basilar atelectasis an d/or infiltrate all redemonstrated. No new infiltrate is seen.
[2017-05-26] MEDS: PANTOPRAZOLE 40 MG TABLET PO SCH (07:48)
[2017-05-26] MEDS: ALLOPURINOL 100 MG TAB PO SCH (07:49)
[2017-05-26] MEDS: methylPREDNISolone SOD SUCCI 40 MG/ML 1 ML VIAL IV SCH ×2 (07:49→21:05)
[2017-05-26] MEDS: PROPRANOLOL 40 MG TAB PO SCH ×2 (07:49→21:05)
[2017-05-26] MEDS: TAMSULOSIN 0.4 MG CAP.ER.24H PO SCH (07:49)
[2017-05-26 07:53] LABS: Glucose,Whole Blood 118 mg/dL (75-99)
[2017-05-26 08:20] VITALS: RESP 18
--- NOTE | 2017-05-26 08:50 | HP ---
HISTORY AND PHYSICAL REASON FOR ADMISSION: Difficulty breathing. HISTORY OF PRESENT ILLNESS: This is a 71-year-old gentleman who was recently treated for a pneumonia, comes into the hospital with complaints of progressive worsening dyspnea over the last few days. Patient states to have a cough, currently nonproductive in nature. Denies any fevers, chills. States that his activity tolerance is significantly affected. Currently lives at independent living facility: However, the patient is not able to ambulate to his dining room. The patient was seen in the emergency room. A chest x-ray was done and appears to have a left lower lobe airspace disease consistent pneumonia. The patient was also noted to have slight worsening of his renal function as well. The patient was started on antibiotics. Denies any additional complaints. He is currently on 2 L supplemental oxygen. HOME MEDICATIONS: 1. Allopurinol. 2. Amaryl. 3. Tradjenta. 4. Fenofibrate. 5. Neurontin. 6. Vitamin D2. 7. ProAir. 8. Symbicort. 9. Antivert. 10.Protonix. 11.Zithromax. 12.Tessalon Perles. 13.Tylenol. 14.Metformin. 15.Prednisone taper. Medications were adequately reviewed and reconciled. ALLERGIES: INCLUDE INFLUENZA, LATEX, MILK AND PENICILLINS. PAST MEDICAL HISTORY: Includes COPD, diabetes mellitus, GI bleed, hypertension, osteoarthritis, prostate disorder, CKD stage 3. SURGICAL HISTORY: Includes finger amputation. Orthopedic surgeries process. Surgeries tonsillectomy and adenoidectomy. SOCIAL HISTORY: Lives at an independent living facility. Former smoker. Denies alcohol or illicit drug use. FAMILY HISTORY: Not pertinent to current admission. PHYSICAL EXAM: Vital signs temperature 97.6, heart rate 69, respiratory rate 16, blood pressure 150/81, saturating 97% on 2-3 L supplemental oxygen. GENERAL APPEARANCE: Does not appear to be in distress. NECK: Supple. No JVD. LUNGS: Diffuse wheezing and rhonchi appreciated at the left base. Air movement is diminished. HEART: S1, S2 heard. No murmurs appreciated. Regular rate and rhythm. ABDOMEN: Soft, nontender. No organomegaly. LOWER EXTREMITIES: No edema. NEURO: No focal motor or sensory deficit noted. LABORATORY DATA: Include hemoglobin 12.7, hematocrit 36.8, white count of 5.9, platelets of 185. Sodium 145, potassium 3.8, chloride 109, bicarb 21, BUN 52, creatinine of 2.31. Lactic acid of 2.7. ASSESSMENT AND PLAN: 1. An acute community-acquired pneumonia in the left lower lobe. 2. Acute on chronic kidney disease stage 3. 3. Lactic acidosis due to dehydration. 4. Acute exacerbation of chronic obstructive pulmonary disease. 5. Diabetes mellitus. 6. Gout. 7. Dyslipidemia. 8. History of a GI bleed. PLAN: The patient was on a cephalosporin in the past. We will change to Levaquin at this time. The patient will be started on Solu-Medrol 30 IV b.i.d. IV hydration in inhalation treatments and breathing treatments. The patient will be monitored closely. Restart Flomax and Inderal and patient's PPI. Blood glucose levels will be controlled with steroid insulin protocol. DVT prophylaxis. CED / TANJA: [id number] /
[2017-05-26] MEDS: IPRATROPIUM-ALBUTEROL 3 ML NEB INHALATION PRN ×2 (09:11→21:38)
[2017-05-26] MEDS: BUDESONIDE 0.5 MG/2 ML NEBU INHALATION SCH ×2 (09:11→21:38)
[2017-05-26] MEDS: INSULIN LISPRO (humaLOG) 300 UNIT/3 ML VIAL SQ SCH ×4 (09:57→22:03)
[2017-05-26] MEDS: ACETAMINOPHEN TAB 325 MG TAB PO PRN ×2 (10:25→21:04)
[2017-05-26 11:47] LABS: Glucose,Whole Blood 156 mg/dL (75-99)
[2017-05-26] MEDS ORDERED: LEVOFLOXACIN 500MG-D5W PMX 500 MG in DEXTROSE/WATER 1 100ML.BAG IVPB SCH (14:00)
[2017-05-26 17:58] LABS: Glucose,Whole Blood 148 mg/dL (75-99)
--- NOTE | 2017-05-26 18:29 | P.PN ---
Subjective This is a 71-year-old gentleman who was recently treated for a pneumonia, comes into the hospital with complaints of progressive worsening dyspnea over the last few days. Patient states to have a cough, currently nonproductive in nature. Denies any fevers, chills. States that his activity tolerance is significantly affected. Currently lives at independent living facility: However, the patient is not able to ambulate to his dining room. The patient was seen in the emergency room. A chest x-ray was done and appears to have a left lower lobe airspace disease consistent pneumonia. The patient was also noted to have slight worsening of his renal function as well. The patient was started on antibiotics. Denies any additional complaints. He is currently on 2 L supplemental oxygen. 05/26/2017 States to be improved complains of some back pain which is chronic However does state to have trace amounts of yellowish dark phlegm States to be improved no fevers chills nausea vomiting abdominal pain diarrhea is reported PHYSICAL EXAM: Vital signs temperature 97.6, heart rate 69, respiratory rate 16, blood pressure 150/81, saturating 97% on 2-3 L supplemental oxygen. GENERAL APPEARANCE: Does not appear to be in distress. NECK: Supple. No JVD. LUNGS: Improved air movement no significant wheezing appreciated today no sputum production reported HEART: S1, S2 heard. No murmurs appreciated. Regular rate and rhythm. ABDOMEN: Soft, nontender. No organomegaly. LOWER EXTREMITIES: No edema. NEURO: No focal motor or sensory deficit noted. ASSESSMENT AND PLAN: 1. An acute community-acquired pneumonia in the left lower lobe. 2. Acute on chronic kidney disease stage 3. 3. Lactic acidosis due to dehydration. 4. Acute exacerbation of chronic obstructive pulmonary disease. 5. Diabetes mellitus. 6. Gout. 7. Dyslipidemia. 8. History of a GI bleed. PLAN: Continue ongoing care. Encourage ambulation patient's breathing appears to be improved. If patient is stable and is able to ambulate we'll likely discharge back to independent living facility. Objective - Vital Signs Vital signs: Vital Signs Temp 98.2 F 05/26/17 15:00 Pulse 54 L 05/26/17 15:00 Resp 18 05/26/17 16:00 BP 147/65 05/26/17 15:00 Pulse Ox 94 L 05/26/17 15:00 Intake & Output 09/10/1005/26/17 05/26/17 18:59 06:59 18:59 Intake Total 960 Output Total 400 Balance -400 960 Weight 97.522 kg Intake: IV 960 Sodium Chloride 0.9% 1, 960 000 ml @ 100 mls/hr IV . Q10H STA Rx#:[id number] Output: Urine 400 Other: Voiding Method Urinal Urinal Toilet # Voids 2 5 - Labs CBC & Chem 7: 05/26/17 06:27 05/26/17 06:27 Labs: Abnormal Lab Results - Last 24 Hours (Table) 05/25/17 05/25/17 05/26/17 Range/Units 13:00 20:10 06:27 RBC 3.53 L (4.30-5.90) m/uL Hgb 11.6 L (13.0-17.5) gm/dL Hct 34.5 L (39.0-53.0) % Lymphocytes # 0.5 L (1.0-4.8) k/uL Chloride (98-107) mmol/L BUN (9-20) mg/dL Creatinine (0.66-1.25) mg/dL Glucose (74-99) mg/dL POC Glucose (mg/dL) 152 H (75-99) mg/dL Hemoglobin A1c 6.3 H (4.2-6.1) % AST (17-59) U/L Total Protein (6.3-8.2) g/dL 05/26/17 05/26/17 05/26/17 Range/Units 06:27 07:46 11:44 RBC (4.30-5.90) m/uL Hgb (13.0-17.5) gm/dL Hct (39.0-53.0) % Lymphocytes # (1.0-4.8) k/uL Chloride 109 H (98-107) mmol/L BUN 47 H (9-20) mg/dL Creatinine 1.90 H (0.66-1.25) mg/dL Glucose 148 H (74-99) mg/dL POC Glucose (mg/dL) 118 H 156 H (75-99) mg/dL Hemoglobin A1c (4.2-6.1) % AST 13 L (17-59) U/L Total Protein 6.2 L (6.3-8.2) g/dL 05/26/17 Range/Units 17:56 RBC (4.30-5.90) m/uL Hgb (13.0-17.5) gm/dL Hct (39.0-53.0) % Lymphocytes # (1.0-4.8) k/uL Chloride (98-107) mmol/L BUN (9-20) mg/dL Creatinine (0.66-1.25) mg/dL Glucose (74-99) mg/dL POC Glucose (mg/dL) 148 H (75-99) mg/dL Hemoglobin A1c (4.2-6.1) % AST (17-59) U/L Total Protein (6.3-8.2) g/dL Microbiology - Last 24 Hours (Table) 05/25/17 13:00 Blood Culture - Preliminary Blood No Growth after 24 hours
[2017-05-26 21:02] LABS: Glucose,Whole Blood 147 mg/dL (75-99)
[2017-05-26 23:12] VITALS: TEMP 97.4
[2017-05-27] MEDS: TAMSULOSIN 0.4 MG CAP.ER.24H PO SCH (07:48)
[2017-05-27] MEDS: INSULIN LISPRO (humaLOG) 300 UNIT/3 ML VIAL SQ SCH (07:48)
[2017-05-27] MEDS: PROPRANOLOL 40 MG TAB PO SCH (07:48)
[2017-05-27] MEDS: ALLOPURINOL 100 MG TAB PO SCH (07:48)
[2017-05-27] MEDS: ACETAMINOPHEN TAB 325 MG TAB PO PRN (07:54)
[2017-05-27 07:59] LABS: Glucose,Whole Blood 160 mg/dL (75-99)
[2017-05-27] MEDS: IPRATROPIUM-ALBUTEROL 3 ML NEB INHALATION PRN (08:12)
[2017-05-27] MEDS: BUDESONIDE 0.5 MG/2 ML NEBU INHALATION SCH (08:13)
[2017-05-27 09:00] VITALS: BP 154/68; PULSE 54
[2017-05-27] MEDS: methylPREDNISolone SOD SUCCI 40 MG/ML 1 ML VIAL IV SCH (09:17)
[2017-05-27] MEDS: PANTOPRAZOLE 40 MG TABLET PO SCH (09:21)
--- NOTE | 2017-05-27 16:53 | P.DS ---
Providers Date of admission: 05/25/17 14:05 Attending physician: Spenser Raymond MD Primary care physician: [facility] Course: This is a 71-year-old gentleman who was recently treated for a pneumonia, comes into the hospital with complaints of progressive worsening dyspnea over the last few days. Patient states to have a cough, currently nonproductive in nature. Denies any fevers, chills. States that his activity tolerance is significantly affected. Currently lives at independent living facility: However, the patient is not able to ambulate to his dining room. The patient was seen in the emergency room. A chest x-ray was done and appears to have a left lower lobe airspace disease consistent pneumonia. The patient was also noted to have slight worsening of his renal function as well. The patient was started on antibiotics. Denies any additional complaints. He is currently on 2 L supplemental oxygen. 05/26/2017 States to be improved complains of some back pain which is chronic However does state to have trace amounts of yellowish dark phlegm States to be improved no fevers chills nausea vomiting abdominal pain diarrhea is reported PHYSICAL EXAM: GENERAL APPEARANCE: Does not appear to be in distress. NECK: Supple. No JVD. LUNGS: Improved air movement no significant wheezing appreciated today no sputum production reported HEART: S1, S2 heard. No murmurs appreciated. Regular rate and rhythm. ABDOMEN: Soft, nontender. No organomegaly. LOWER EXTREMITIES: No edema. NEURO: No focal motor or sensory deficit noted. ASSESSMENT AND PLAN: 1. An acute community-acquired pneumonia in the left lower lobe. 2. Acute on chronic kidney disease stage 3. 3. Lactic acidosis due to dehydration. 4. Acute exacerbation of chronic obstructive pulmonary disease. 5. Diabetes mellitus. 6. Gout. 7. Dyslipidemia. 8. History of a GI bleed. Patient be discharged on a steroid taper. Levaquin to continue for a total of 6 more days Patient is improved was able to ambulate without much difficulty We'll be discharged back to independent living facility. Patient is following up with his home service director in the next 4 days and his primary care physician at the same time interval as well Is improved is stable for discharge Patient Condition at Discharge: Stable Plan - Discharge Summary New Discharge Prescriptions: New Ipratropium-Albuterol Nebulize [Duoneb 0.5 mg-3 mg/3 ml Soln] 3 ml INHALATION RT-Q4H PRN neb PRN Reason: shortness of breath Levofloxacin [Levaquin] 500 mg PO Q48H #3 tab predniSONE 0 mg PO DIRECTED #30 tab Continue Linagliptin [Tradjenta] 5 mg PO SOTO Glimepiride [Amaryl] 1 mg PO DAILY Allopurinol [Zyloprim] 100 mg PO DAILY Gabapentin [Neurontin] 300 mg PO DAILY Ergocalciferol (Vitamin D2) [Vitamin D2] 50,000 unit PO SOTO Tamsulosin [Flomax] 0.4 mg PO PC-BRKFST #30 cap.er.24h Pantoprazole [Protonix] 40 mg PO DAILY Meclizine [Antivert] 25 mg PO TID Albuterol Sulfate [Proair Hfa] 2 puff INHALATION RT-QID PRN PRN Reason: Shortness Of Breath Budesonide/Formoterol Fumarate [Symbicort 80-4.5 Mcg Inhaler] 2 puff INHALATION RT-BID Propranolol HCl 80 mg PO BID Benzonatate [Tessalon Perles] 100 mg PO TID PRN PRN Reason: cough metFORMIN HCL [Glucophage] 500 mg PO BID Discontinued Fenofibrate [Lofibra] 160 mg PO DAILY predniSONE See Taper PO DAILY Azithromycin [Zithromax Z-pack] See Taper PO DIRECTED Discharge Medication List Allopurinol [Zyloprim] 100 mg PO DAILY 11/08/15 [History] Glimepiride [Amaryl] 1 mg PO DAILY 11/08/15 [History] Linagliptin [Tradjenta] 5 mg PO SOTO 11/08/15 [History] Gabapentin [Neurontin] 300 mg PO DAILY 07/07/16 [History] Ergocalciferol (Vitamin D2) [Vitamin D2] 50,000 unit PO SOTO 11/16/16 [History] Tamsulosin [Flomax] 0.4 mg PO PC-BRKFST #30 cap.er.24h 12/13/16 [Rx] Albuterol Sulfate [Proair Hfa] 2 puff INHALATION RT-QID PRN 03/16/17 [History] Budesonide/Formoterol Fumarate [Symbicort 80-4.5 Mcg Inhaler] 2 puff INHALATION RT-BID 03/16/17 [History] Meclizine [Antivert] 25 mg PO TID 03/16/17 [History] Pantoprazole [Protonix] 40 mg PO DAILY 03/16/17 [History] Benzonatate [Tessalon Perles] 100 mg PO TID PRN 05/25/17 [History] Propranolol HCl 80 mg PO BID 05/25/17 [History] metFORMIN HCL [Glucophage] 500 mg PO BID 05/25/17 [History] Ipratropium-Albuterol Nebulize [Duoneb 0.5 mg-3 mg/3 ml Soln] 3 ml INHALATION RT -Q4H PRN neb 05/27/17 [Rx] Levofloxacin [Levaquin] 500 mg PO Q48H #3 tab 05/27/17 [Rx] predniSONE 0 mg PO DIRECTED #30 tab 05/27/17 [Rx] Follow up Appointment(s)/Referral(s): Monisha Parham DO [Primary Care Provider] - 1-2 days Patient Instructions/Handouts: Community Acquired Pneumonia (DC) Discharge Disposition: HOME SELF-CARE
[2017-06-07] MEDS ORDERED: LEVOFLOXACIN 500 MG TAB PO SCH (14:00)
== END 2017-05-27 12:18 | disposition home or self-care (01) | DRG 190 ==
LOC: EC 12:24 → 5MS5E 14:05
PROVIDERS: ADMIT Internal Medicine; ATTEND Internal Medicine
DX: J44.0 Chronic obstructive pulmonary disease with (acute) lower respiratory infection (principal); J18.9 Pneumonia, unspecified organism; N17.9 Acute kidney failure, unspecified; E87.2 Acidosis; N18.3 Chronic kidney disease, stage 3 (moderate); E11.22 Type 2 diabetes mellitus with diabetic chronic kidney disease; J44.1 Chronic obstructive pulmonary disease with (acute) exacerbation; I12.9 Hypertensive chronic kidney disease with stage 1 through stage 4 chronic kidney disease, or unspecified chronic kidney disease; E86.0 Dehydration; E78.5 Hyperlipidemia, unspecified; G47.30 Sleep apnea, unspecified; N42.9 Disorder of prostate, unspecified; G89.29 Other chronic pain; M54.9 Dorsalgia, unspecified; K21.9 Gastro-esophageal reflux disease without esophagitis; M19.91 Primary osteoarthritis, unspecified site; M10.9 Gout, unspecified; Z87.891 Personal history of nicotine dependence; Z79.51 Long term (current) use of inhaled steroids; Z79.84 Long term (current) use of oral hypoglycemic drugs; Z79.899 Other long term (current) drug therapy
CPT/HCPCS: 36415; 71020; 80053; 81003; 82550; 82553; 83036; 83605; 84484; 85025; 85610; 85730; 87040; 93005; 94640; 94760; 96361; 96365; 99285

== ENCOUNTER 2017-08-15 12:23 | Emergency (ER) | payer MEDICARE, OTHER ==
[2017-08-15 12:38] VITALS: RESP 17
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
--- NOTE | 2017-08-15 14:09 | US ---
EXAMINATION TYPE: US venous doppler duplex LE RT DATE OF EXAM: 08/15/2017 1:47 PM COMPARISON: NONE CLINICAL HISTORY: Pain. SIDE PERFORMED: right TECHNIQUE: The lower extremity deep venous system is examined utilizing real time linear array sonog jumana with graded compression, doppler sonography and color-flow sonography. VESSELS IMAGED: External Iliac Vein (EIV) Common Femoral Vein Deep Femoral Vein Greater Saphenous Vein * Femoral Vein Popliteal Vein Small Saphenous Vein * Proximal Calf Veins (* superficial vessels) Within the superficial inguinal region there is a 2.0 x 1.0 x 1.5 cm hyperechoic area. Right Leg: Negative for DVT Grayscale, color doppler, spectral doppler imaging performed of the deep veins of the lower extremiti es. There is normal flow, compressibility, vascular waveforms. IMPRESSION: 1. No sonographic evidence of deep venous thrombosis within the right lower extremity. 2. Note is made of a hyperechoic area within the subcutaneous tissues of the right superficial inguin al region measuring 1.0 cm in short axis that could represent a hyperechoic lymph node or hematoma.
[2017-08-15 15:31] VITALS: BP 138/58; PULSE 64; TEMP 98.7
== END 2017-08-15 15:51 | disposition home or self-care (01) ==
LOC: EC 12:23
DX: M79.604 Pain in right leg (principal); J44.9 Chronic obstructive pulmonary disease, unspecified; K21.9 Gastro-esophageal reflux disease without esophagitis; E11.22 Type 2 diabetes mellitus with diabetic chronic kidney disease; I12.9 Hypertensive chronic kidney disease with stage 1 through stage 4 chronic kidney disease, or unspecified chronic kidney disease; N18.9 Chronic kidney disease, unspecified; E78.5 Hyperlipidemia, unspecified; G47.30 Sleep apnea, unspecified; Z99.89 Dependence on other enabling machines and devices; Z98.890 Other specified postprocedural states; Z87.891 Personal history of nicotine dependence; Z79.4 Long term (current) use of insulin; Z79.51 Long term (current) use of inhaled steroids; Z79.899 Other long term (current) drug therapy; Z88.7 Allergy status to serum and vaccine; Z91.040 Latex allergy status; Z91.011 Allergy to milk products; Z88.0 Allergy status to penicillin
CPT/HCPCS: 99284

== ENCOUNTER → 2018-07-22 | Outpatient (CLI) | payer MEDICARE, OTHER ==
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
== END | disposition home or self-care (01) ==
LOC: RADCTMAIN 15:18
PROVIDERS: ATTEND Psychiatry & Neurology Neurology
DX: G31.1 Senile degeneration of brain, not elsewhere classified (principal); R51 Headache
CPT/HCPCS: 70450

== ENCOUNTER → 2019-04-30 | Outpatient (CLI) | payer MEDICARE, OTHER ==
--- NOTE | 2019-05-01 06:42 | US ---
EXAMINATION TYPE: US kidneys/renal and bladder DATE OF EXAM: 04/30/2019 COMPARISON: CT March 16, 2017. Renal ultrasound December 09, 2016. CLINICAL HISTORY: N18.3 CKD. EXAM MEASUREMENTS: Right Kidney: 10.1 x 4.4 x 5.3 cm Left Kidney: 9.6 x 5.1 x 4.6 cm Post Void Residual Volume: mL Right Kidney: 1.9 x 1.7 x 2.0cm hyperechoic focus seen superior measuring 1.9 x 1.7 x 2.0cm Left Kidney: wnl Bladder: wnl There is no evidence for hydronephrosis at this point in time. No nephrolithiasis is seen. 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 The urinary bladder is not greatly distended. B ilateral ureteral jets are not seen on images saved. IMPRESSION: No hydronephrosis is evident bilaterally. No significant change from 2017 studies.
== END | disposition home or self-care (01) ==
LOC: RADUSWWP 15:25
PROVIDERS: ATTEND Internal Medicine Nephrology
DX: N18.3 Chronic kidney disease, stage 3 (moderate) (principal)
CPT/HCPCS: 76770

== ENCOUNTER → 2020-06-14 | Outpatient (CLI) | payer MEDICARE, OTHER ==
--- NOTE | 2020-06-14 16:49 | XR ---
EXAMINATION TYPE: PA chest and left rib series, 5 views Two-view sternum DATE OF EXAM: 06/14/2020 Comparison: 05/26/2017 Clinical History: 74-year-old male [id number] CHEST PAIN, RT HIP PAIN Findings: Chest: Heart borderline enlarged. Aorta and pulmonary vasculature within normal limits. Patchy bibasilar opa cities likely areas of atelectasis. No pleural effusion. Left RIBS: Multiple left-sided rib fracture. A displaced fracture of the left posterolateral seventh rib appears chronic, present back in 2017. Callus associated with the left anterior sixth rib also appears to chong ve been present previously. Callus also involving the left anterior fifth rib from old injury. Chroni c ununited fracture of the left lateral eighth right. Irregularity involving the anterior left fourth rib is age-indeterminate. Sternum: Underlying degenerative change at the left glenohumeral joint. Questionable bony irregularity along t he anterior cortex of the sternal manubrium on the lateral view. No depressed fracture seen. Impression: 1. Chest: Patchy bibasilar opacities, likely areas of atelectasis. 2. Left RIBS: Multiple left-sided rib fracture deformities including the fourth, fifth, sixth, sevent h, and eighth ribs most of which appear chronic. The left lateral fourth rib is age indeterminate. Co rrelate for pain at this level. 3. Sternum: Questionable bony irregularity along the anterior cortex of the sternal manubrium could b e projectional artifact. Correlate for point tenderness at this level to exclude a nondisplaced fract ure.
--- NOTE | 2020-06-14 16:50 | XR ---
EXAMINATION TYPE: XR Hip Complete RT DATE OF EXAM: 06/14/2020 COMPARISON: NONE HISTORY: 74-year-old male fall and hip pain TECHNIQUE: 2 views FINDINGS: Multiple pelvic phleboliths. Mild degenerative change of the right hip with axial joint space narrowi ng and marginal spurring. No acute fracture, subluxation, dislocation seen. IMPRESSION: Mild right hip OA. No acute osseous abnormality seen.
== END | disposition home or self-care (01) ==
LOC: RADXRYALE 12:10
PROVIDERS: ATTEND Family Medicine
DX: S22.42XA Multiple fractures of ribs, left side, initial encounter for closed fracture (principal); M16.11 Unilateral primary osteoarthritis, right hip; R91.8 Other nonspecific abnormal finding of lung field; R07.82 Intercostal pain
CPT/HCPCS: 71120; 73502